=== PATIENT | female | born 1975 | race Caucasian/White ===

== ENCOUNTER 2018-03-15 09:32 | Outpatient (REF) | payer OTHER, SELFPAY ==
--- NOTE | 2018-03-15 08:40 | PAPFT_PTH ---
PATIENT: Diana Barrera LOC: [facility] U#:[id number] AGE/SX: 42/F ROOM: RE03/15/[address]: Elissa Quesada : 1975 BED: DIS: 03/15/2018 SPEC #: [id number] RECD: 03/15/18 13:17 STATUS: HAROLDO REJanie #: [id number] MAGNOLIA: 03/15/18 08:[address]: Elissa Quesada DEPT: [facility] Cytology RECD BY: Racheal Robles ENTERED: 03/15/18 13:18 SP TYPE: PAPFT OTHR DR: Chioma Bass Tissues: 1 - CX/ENDOCX FOR PAP SMEARS Procedures: PAP THIN PREP/[facility] Screening Comments: [id number] (VAGINAL HPV SENT TO [facility])
[2018-03-27 21:03] LABS: HPV High Risk type 16, PCR Negative (Negative); HPV High Risk type 18, PCR Negative (Negative); HPV other High Risk types, PCR Negative (Negative); Specimen Source VAGINAL
== END 2018-03-15 09:52 ==
LOC: LBN 09:32
PROVIDERS: PCP Nurse Practitioner Family; Visit Provider Obstetrics & Gynecology Gynecology
DX: Z12.4 Encounter for screening for malignant neoplasm of cervix (principal); Z11.51 Encounter for screening for human papillomavirus (HPV)
CPT/HCPCS: 87624; 88142

== ENCOUNTER 2018-09-17 17:10 | Emergency (ER) | payer OTHER, SELFPAY ==
[2018-09-17 17:29] VITALS: BP 145/91; PULSE 113; RESP 16; TEMP 39.4; O2SAT 98
[2018-09-17 17:30] LABS: Bilirubin Negative (Negative); Blood Negative (Negative); Clarity Clear (Clear); Glucose Negative (Negative); Ketones Negative (Negative); Leukocyte Esterase Negative (Negative); Nitrite Negative (Negative); Urobilinogen 0.2 EU/dL (Up TO 0.2)
--- NOTE | 2018-09-17 17:42 | DI.COMBO_ITS ---
SYMPTOM/DIAGNOSIS: COUGH, FEBRILE, HEADACHE PORTABLE AP CHEST: The lungs are free of infiltrate. There is no pleural effusion. The cardiovascular structures are intact. SUMMARY: No evidence of acute cardiopulmonary disease. NONCONTRAST HEAD CT: The study was carried out without contrast. There is no evidence of a mass. The ventricles are normal. There is no skull fracture. The sinuses are unremarkable. There is no evidence of a mastoid effusion. The soft tissues are unremarkable. SUMMARY: There is no evidence of an acute intracranial abnormality.
[2018-09-17 17:45] LABS: Bacteria Few HPF (Negative); C & S Indicated? No/Sq. Contamination; Crystals Negative HPF (Negative); Epithelial Cells Many HPF (Negative); Mucus Negative (Negative); RBC 0-2 (0-2); WBC 0-2 HPF (0-5)
--- NOTE | 2018-09-17 17:54 | ED.GENADUL_ITS ---
Discharge Plan Disposition Patient Disposition: HOME Condition: Improving Discharge Details Chief Complaint: Fever Clinical Impression: Headache, Fever Primary Care Provider: Chioma Bass ED Provider: Maikel Cortez Home Meds and New Rx's Prescriptions: New doxycycline hyclate 100 mg tablet 100 mg PO BID 21 Days Qty: 42 RF: 0 ondansetron 4 mg tablet,disintegrating 4 mg PO QID PRN (Reason: nausea and vomiting) Qty: 30 RF: 0 No Action calcium carbonate [Tums] 300 mg (750 mg) tablet,chewable 300 mg PO DIRECTED RF: 0 cholecalciferol (vitamin D3) 1,000 unit capsule 1,000 unit PO DAILY RF: 0 mometasone [Nasonex] 50 mcg/actuation spray,non-aerosol 1 spray DENI BID RF: 0 albuterol sulfate [Proventil HFA] 90 mcg/actuation HFA aerosol inhaler 2 puff IH Q6H PRNRF: 0 buspirone 10 mg tablet 10 mg PO BID RF: 0 albuterol sulfate 1.25 MG/3 ML solution for nebulization 1.25 mg Inhalation PRN RF: 0 Biofreeze (menthol) 118 ML gel 118 ml Topical PRN RF: 0 Lyrica 150 MG capsule 150 mg PO BID RF: 0 Probiotic (B. coagulans) 1 EACH capsule,delayed release(DR/EC) 1 ea PO HS RF: 0 ranitidine HCl 150 mg tablet 150 mg PO BID RF: 0 polyethylene glycol 3350 [Miralax] 17 gram/dose powder 17 gm PO DAILY RF: 0 celecoxib [Celebrex] 200 mg capsule 200 mg PO DAILY RF: 0 lamotrigine 25 mg tablet 25 mg PO DAILY RF: 0 metronidazole 0.75 % cream 1 applic TP BID RF: 0 fiber tablet PO DAILY RF: 0 loratadine [Claritin] 10 mg tablet 10 mg PO DAILY RF: 0 diclofenac sodium [Voltaren] 1 % gel 2 gm TP BID RF: 0 omega 4-oti-lic-fish oil [Fish Oil] 1,000 mg (120 mg-180 mg) capsule 1 cap PO DAILY RF: 0 acetaminophen 650 mg tablet extended release 1,300 mg PO .as directed PRNRF: 0 methocarbamol [Robaxin] 500 mg tablet 500 mg PO TID RF: 0 benzonatate 100 mg capsule 100 mg PO Q8H PRN PRNRF: 0 tramadol 50 mg tablet 50 mg PO TID MDD 150mg PRNRF: 0 Discharge Instructions Additional Instructions: Given you felt better, and your reassuring workup including lumbar puncture results we are starting oral doxycyline to cover for tick born illness IF you feel significantly worse, have new symptoms such as severe abdominal pain or difficulty breathing return to the emergency department follow up with your primary care provider within 1-2 weeks Medical Decision Making <Reed Perry, - Last Filed: 09/17/18 22:29> This is a pleasant 42-year-old female who presents today for headache, fever, and severe malaise. Patient was bitten by a tick 2 weeks ago and then again 1 week ago. Tics per patient description is concerning for deer tick with black legs, and a red spot on its back. Patient's fever at home was 10 4-1 05. She was sent in by PCP for further evaluation. Exam demonstrates no focal neurologic deficits but does demonstrate positive Kernig's and Brudzinski's. In addition to a notable headache. Patient is febrile, and tachycardic. Differential is concerning for meningitis, encephalitis, Lyme, anaplasmosis and ehrlichiosis. We will get a chest x-ray as well as urinalysis to rule out any other atypical forms of infection. We will start vancomycin, Rocephin, and doxycycline out of concern for these atypical illnesses and more concerningly meningitis. 8 PM Patient's laboratory work-up has returned, white count is slightly low at 3.3, platelets are normal, electrolytes are normal. Renal function stable, lactate 1.2. TSH normal. Urinalysis negative for evidence of infection. CT scan per virtual radiology shows no evidence of acute intracranial abnormality. Lumbar puncture was attempted, however secondary to the patient's obesity, and size the standard needle was insufficient for reaching the depth required for cerebrospinal fluid collection. We have consulted anesthesia for lumbar puncture with longer needles. On reassessment the patient continues to demonstrate no neurologic deficits. After notable migraine cocktail and fluid rehydration she is feeling better but still does complain of neck stiffness, mild headache, notable malaise. We are pending the cerebrospinal fluid results. I did contact Dr. Morley the hospitalist and discussed the case with him. He would like to wait for final results prior to admission evaluation. Case will be signed out to my colleague Dr. Maikel Cortez for final hospitalist consultation and disposition pending cerebrospinal fluid results. Procedure: Lumbar Puncture Indication: Concern for Meningitis A time-out was completed verifying correct patient, procedure, site, positioning, and special equipment if applicable. The patient was placed in the LEFT lateral decubitus position in a semi- position with help from the nursing staff. The area was cleansed and draped in usual sterile fashion. 1% lidocaine was used anesthetize the surrounding skin area. A 20-gauge 3.5-inch spinal needle was used. Unfortunately because of the patient's body habitus we are unable to reach the epidural space due to the insufficient length of the needles. 2 total attempts were made with no success. Estimated Blood Loss: 0ml The patient tolerated the procedure well and there were no complications. <Maikel Cortez MD - Last Filed: 09/17/18 21:44> patient's LP results came back reassuring with very few white cells. She is feeling better and Dr. Morley evaluated her and felt she could be d/c'd on oral doxy, and after examinig her and reviewing labs and discussing with the patient decision was made to try outpatient doxy for likely tick born illness. She feels much better and would like to go home rather than be admitted. She understands she needs to return if she is worsening and f/u with her pcp HPI <Reed Perry DO - Last Filed: 09/17/18 22:29> General Date/Time Provider Initiated Documentation: 09/17/18 17:42 . HPI Narrative: This is a 42-year-old female with a past medical history of fibromyalgia, asthma, chronic migraines, who presents today for evaluation of fever, headache, neck pain. The patient states that 2 weeks ago she was bit by a black legged tick with red on its back. It was embedded and engorged. She had no rash or complaints after this initial episode. She then was bit by a second tick of similar description which also was engorged 1 week ago. Since then she had been having mild malaise and achiness, however this was certainly obfuscated by her chronic symptoms of fibromyalgia. Unfortunately over the last 2 days she has had notable worsening of her symptoms, severe fatigue, notable headache, neck pain, neck stiffness, fever with a T-max of 104-105. Headache is notably worsened with bright lights and flexion of her neck. Improved by nothing. She has had a mild cough. She denies any dysuria. She does admit to nausea but no vomiting. She does have chronic headaches however she states that this is notably different than her chronic headaches. She denies any other sick contacts or any other complaints at this time. No other modifying factors. She was seen earlier by her PCP who recommended that she immediately come to the ER for further evaluation. Related Data Home Medications Medication Instructions Recorded Confirmed albuterol sulfate 1.25 mg INHALATION PRN 04/25/16 03/15/18 menthol [Biofreeze] 118 ml TOPICAL PRN 04/25/16 05/28/18 pregabalin [Lyrica] 150 mg PO BID tab-cap 07/28/16 05/28/18 Bacillus coagulans [Probiotic] 1 ea PO HS 08/29/16 05/28/18 buspirone 10 mg tablet 10 mg PO BID 03/15/18 05/28/18 celecoxib 200 mg capsule 200 mg PO DAILY 04/30/18 05/28/18 diclofenac 1 % topical gel 2 gm TP BID gm 04/30/18 05/28/18 fiber tablet tab PO DAILY tab 04/30/18 05/28/18 lamotrigine 25 mg tablet 25 mg PO DAILY 04/30/18 05/28/18 loratadine 10 mg tablet 10 mg PO DAILY 04/30/18 05/28/18 metronidazole 0.75 % topical cream 1 applic TP BID 04/30/18 05/28/18 omega 7-cjk-oed-fish oil 1,000 mg 1 cap PO DAILY 04/30/18 05/28/18 (120 mg-180 mg) capsule polyethylene glycol 3350 17 17 gm PO DAILY 04/30/18 05/28/18 gram/dose oral powder ranitidine 150 mg tablet 150 mg PO BID tab 04/30/18 05/28/18 acetaminophen ER 650 mg 1,300 mg PO .as directed PRN tab 05/28/18 05/28/18 tablet,extended release albuterol sulfate HFA 90 2 puff IH Q6H PRN 05/28/18 05/28/18 mcg/actuation aerosol inhaler benzonatate 100 mg capsule 100 mg PO Q8H PRN PRN cap 05/28/18 05/28/18 calcium carbonate 300 mg (750 mg) 300 mg PO DIRECTED tab 05/28/18 05/28/18 chewable tablet cholecalciferol (vitamin D3) 1,000 1,000 unit PO DAILY 05/28/18 05/28/18 unit capsule methocarbamol 500 mg tablet 500 mg PO TID tab 05/28/18 05/28/18 mometasone 50 mcg/actuation nasal 1 spray DENI BID gm 05/28/18 05/28/18 spray tramadol 50 mg tablet 50 mg PO TID PRN tab-cap MDD 150mg 05/28/18 05/28/18 doxycycline hyclate 100 mg PO BID 21 Days #42 tab 09/17/18 ondansetron 4 mg PO QID PRN #30 tab 09/17/18 Previous Rx's Medication Instructions Recorded doxycycline hyclate 100 mg PO BID 21 Days #42 tab 09/17/18 ondansetron 4 mg PO QID PRN #30 tab 09/17/18 Allergies Allergy/AdvReac Type Severity Reaction Status Date / Time mold Allergy Intermediate Verified 09/17/18 17:32 No Known Drug Allergies Allergy Unverified 09/17/18 17:32 General Stated Complaint: Fever JALEEL: 3 Review of Systems <Reed Perry DO - Last Filed: 09/17/18 22:29> Review of Systems All systems reviewed & are unremarkable except as noted in HPI and below PFSH <Reed Perry DO - Last Filed: 09/17/18 22:29> Medical History Fibromyalgia affecting multiple sites (Chronic) Adenocarcinoma of cervix (Chronic) Depression (Chronic) Eczema (Chronic) Migraine Cervical high risk HPV (human papillomavirus) test positive (Resolved) BMI 40.0-44.9, adult (Chronic) GERD (gastroesophageal reflux disease) (Chronic) Acne rosacea (Chronic) IBS (irritable bowel syndrome) (Chronic) Asthma (Chronic) Relies on vasectomy as primary control method (Inactive) Surgical History Hysterectomy, Laproscopic (Resolved 03/29/17) Dilation and curettage (Resolved) Family History Mother Diabetes Essential hypertension Social History Smoking/Tobacco Use Status: Never Alcohol Intake: current Alcohol Intake frequency: a few times a month Details: rarely Drug use: Never Substance use type: does not use Household members: spouse, children and other Details: H-Mac (Dx with ASD 41yo) Daniel 6yo Autism spectrum Number of Children: 1 current occupation: disabled secondary to fibromyalgia Seatbelt use: always Do you feel safe at home: Yes Do you feel safe in your relationship?: Yes Female Reproductive History Menstrual control method: other (Hysterectomy) History History 2 Para Hx # Term Pregnancies 1 Multiple births Hx # Pregnancies Ectopic pregnancies AB induced Hx Number of Living Children AB spontaneous Exam <Reed Perry DO - Last Filed: 09/17/18 22:29> Narrative Exam Narrative: 1.Const: Well-nourished, Well-developed, appearing stated age 2.Eyes: PERRL, no conjunctival injection, and symmetrical lids. 3.ENT: Atraumatic external nose and ears. Moist MM. Neck: Symmetric, trachea midline, No thyromegaly. Positive Kernig's and Brudzinski's on exam. Minimal tenderness on palpation of the posterior neck and occiput peer 4.CVS: +S1/S2, No murmurs or gallops. Peripheral pulses 2+ and equal in all extremities. Brisk capillary refill in all extremities. 5.RESP: Unlabored respiratory effort. Clear to auscultation bilaterally. No wheezes rales or rhonchi 6.GI: Soft, Nontender/Nondistended, No hepatosplenomegaly. No guarding or rebound. 7.MSK: Normocephalic/Atraumatic, Extremities w/o deformity or ttp No cyanosis or clubbing, Normal movement of all extremities 8.Skin: Warm, Dry. No rashes or lesions. 9.Neuro: loss control engineer II-XII grossly intact. Sensation grossly intact, no focal neurologic deficits. All 6 cardinal planes of vision are fully intact. No evidence of rotatory or vertical nystagmus. The patient demonstrated a normal sqnjyp-fsxk-vocynh, good dexterity. There was no evidence of dysdiadochokinesia. Patient was able to ambulate without difficulty. There was no wide-based gait. Romberg, and puzi-nq-ckhw are both normal on testing. Sensation was intact bilaterally as well as muscle strength bilaterally for all extremities. Patient was able to verbalize butter cup with no slurring, or miss pronunciation. 10.Psych: (AAO) x3. Appropriate mood and affect Course <Reed Perry, - Last Filed: 09/17/18 22:29> Vital Signs Temperature 39.4 C H 09/17/18 17:29 Pulse 113 H 09/17/18 17:29 Respiratory Rate 16 09/17/18 17:29 Blood Pressure 145/91 H 09/17/18 17:29 Pulse Oximetry 98 09/17/18 17:29 Temperature 39.4 C H 09/17/18 17:29 Temperature Source Oral 09/17/18 17:29 Pulse 113 H 09/17/18 17:29 Respiratory Rate 16 09/17/18 17:29 Respiratory Effort Non-Labored 09/17/18 17:31 Blood Pressure 145/91 H 09/17/18 17:29 Blood Pressure Position Supine 09/17/18 17:29 Pulse Oximetry 98 09/17/18 17:29 Oxygen Delivery Method Room Air 09/17/18 17:29 Oxygen Flow Rate 0 09/17/18 17:29 Pain Level 7 09/17/18 17:29 Lab/Test Results Lab/Test Results: 09/17/18 17:43 Blood Blood Culture - Pending 09/17/18 17:43 Blood Blood Culture - Pending Laboratory Tests Range/Units 09/17/18 17:18 Urine Color (Yellow) Yellow Urine Clarity (Clear) Clear Urine pH (5-8) 8.0 Ur Specific [place] (1.005-1.025) 1.020 Urine Protein (Negative) mg/dL 30 H Urine Ketones (Negative) mg/dL Negative Urine Blood (Negative) Negative Urine Nitrite (Negative) Negative Urine Bilirubin (Negative) Negative Urine Urobilinogen (Up TO 0.2) EU/dL 0.2 Ur Leukocyte Esterase (Negative) Negative Urine RBC (0-2) 0-2 Urine WBC (0-5) HPF 0-2 Ur Epithelial Cells (Negative) HPF Many Urine Crystals (Negative) HPF Negative Urine Bacteria (Negative) HPF Few Urine Mucus (Negative) Negative Ur Culture Indicated? No/sq. contamination Urine Glucose (Negative) mg/dL Negative Sign Out <Reed Perry DO - Last Filed: 09/17/18 22:29> Sign Out Data: Sign Out Comment: Pending CSF results and then subsequent admission. Currently stable Last updated by Reed Perry DO at 09/17/18 21:00
[2018-09-17 18:01] LABS: Lactate-non-spesis 1.2 mmol/l (0.6-1.4)
[2018-09-17 18:04] LABS: Abs Immature Grans 0.02 k/cumm (0.0-0.09); Absolute Basophil Count 0.02 k/cumm (0.0-0.2); Absolute Lymphocyte Count 0.46 k/cumm (1.2-3.4); Absolute Monocyte Count 0.31 k/cumm (0.11-0.7); Basophils % 0.6; HGB 13.3 g/dL (12.0-15.5); Immature Grans % 0.6; Lymphocytes % 13.9; Mean Corp. HGB Concentration 31.7 g/dL (32.0-36.0); Mean Corpuscular Hemoglobin 26.7 pg (27.0-33.0); Mean Corpuscular Volume 84.3 fL (80-95); Mean Platelet Volume 9.8 fL (8.0-11.0); Monocytes % 9.4; Neutrophils % 75.5; Platelet Count 197 x1000/uL (130-400); RBC 4.98 m/cumm (4.00-5.20); RBC Distribution Width 13.7 % (11.7-14.6); White Blood Cell Count 3.31 k/cumm (4.4-10.8)
[2018-09-17] MEDS: Ketorolac 30 MG/ML VIAL IVP (18:08)
[2018-09-17] MEDS: Normal Saline 1,000 ML 1000 ML IV ×2 (18:09→20:40)
[2018-09-17] MEDS: Ketorolac 30 MG/ML VIAL (18:09)
[2018-09-17] MEDS: Ondansetron 4 MG/2 ML VIAL (18:10)
--- NOTE | 2018-09-17 18:24 | DI.VRAD_ITS ---
EXAM: CT Head Without Contrast EXAM DATE/TIME: 09/17/2018 5:47 PM CLINICAL HISTORY: 42 years old, female; Pain; Headache TECHNIQUE: Imaging protocol: Axial computed tomography images of the head without contrast. Coronal and sagittal reformatted images were created and reviewed. COMPARISON: No relevant prior studies available. FINDINGS: Brain: Normal. No hemorrhage. Unremarkable white matter. No mass effect. Ventricles: Normal. No ventriculomegaly. Bones/joints: Unremarkable. No acute fracture. Sinuses: Visualized sinuses are unremarkable. No fluid levels. Mastoid air cells: Visualized mastoid air cells are well aerated. No mastoid effusion. Soft tissues: Unremarkable. IMPRESSION: No acute intracranial abnormality. Dictated and Authenticated by: Toy Garber MD. Ordering:CLIF Mcbride MD
[2018-09-17 18:28] LABS: ALT 38 U/L (12-78); AST 24 U/L (15-37); Albumin 3.4 g/dL (3.4-5.0); Alkaline Phosphatase 107 U/L (46-116); Anion Gap 6.8 mmol/L (3-11); BUN 6 mg/dL (7-18); Bilirubin, Total 0.4 mg/dL (0.2-1.0); CO2 28.2 mmol/L (21.0-32.0); CREATININE 0.96 mg/dL (0.55-1.02); Calcium 8.7 mg/dL (8.5-10.1); Chloride 103 mmol/L (98-107); Glucose 119 mg/dL (70-100); Potassium 4.1 mmol/L (3.5-5.1); Sodium 138 mmol/L (136-145); Total Protein 7.1 g/dL (6.4-8.2)
[2018-09-17 18:38] LABS: TSH (W/Ref FT4) 0.47 uIU/mL (0.358-3.74)
[2018-09-17] MEDS: cefTRIAXone 2 GM/50 ML BAG IVPB (18:38)
[2018-09-17] MEDS: diphenhydrAMINE 50 MG/ML VIAL 25 MG IVP (18:51)
[2018-09-17] MEDS: DOXYCYCLINE 100 MG in Normal Saline 100 ML IVPB (19:21)
[2018-09-17] MEDS: Prochlorperazine 10 MG/2 ML VIAL IVP (19:22)
[2018-09-17] MEDS: VANCOMYCIN 2,000 MG in Normal Saline 500 ML 333.3333 MG IVPB (19:22)
[2018-09-17 20:40] VITALS: O2SAT 92
[2018-09-17 20:41] VITALS: BP 124/79; PULSE 101; O2SAT 94
[2018-09-17 20:46] VITALS: BP 129/77; PULSE 98; O2SAT 94
[2018-09-17 21:02] LABS: Clarity Clear; Tube # 4
[2018-09-17 21:03] LABS: RBC 0 /mm3 (0-5); WBC 1 /mm3 (0-5); Xanthochromia Absent
[2018-09-17 21:05] LABS: Glucose (CSF) 75 mg/dL (40-70); Total Protein (CSF) 24 mg/dL (15-45)
--- NOTE | 2018-09-17 21:38 | W.MEDCONSULT ---
Date of service: 09/17/18 Time of Service: 21:38 Assessment and Plan (1) Fever: Current visit: Yes Status: Acute Infection, non-specific at this point, but meningitis has been ruled out. Secondary Lyme certainly possible though no specific findings. Clinically patient appears entirely non-toxic and I see no reason she couldn't be managed as outpatient. I would advise empiric Doxycycline 100 bid x 2-3 weeks, pending Lyme serology, and follow up with PCP. History of Present Illness Chief Complaint: fever Narrative: 42 female here with few days of fever, malaise, BENOIT. Patient notes tick bite 2 weeks ago, no subssequent rash. Initial evaluation in ER of note for temp 39.4 and waht was described as neck stiffness (patient tells me that this is hard to separate from what is her chrronic pain symdrome). At any rate pateint was given doses of Vanco, Rocephin and Doxy out of concern for meninigiitis. Initial LP attempt unsuccessful but CSF was later obtained by anaesthesia. CSF. CSF is benign, with 1 WBC, 0 RBC. At this time patient reports that she is feeling quite well and asking whether she could go home. [facility] Medical History Fibromyalgia affecting multiple sites (Chronic) Adenocarcinoma of cervix (Chronic) Depression (Chronic) Eczema (Chronic) Migraine Cervical high risk HPV (human papillomavirus) test positive (Resolved) BMI 40.0-44.9, adult (Chronic) GERD (gastroesophageal reflux disease) (Chronic) Acne rosacea (Chronic) IBS (irritable bowel syndrome) (Chronic) Asthma (Chronic) Relies on vasectomy as primary control method (Inactive) Surgical History Hysterectomy, Laproscopic (Resolved 03/29/17) Dilation and curettage (Resolved) Family History Mother Diabetes Essential hypertension Social History Smoking/Tobacco Use Status: Never Alcohol Intake: current Alcohol Intake frequency: a few times a month Details: rarely Drug use: Never Substance use type: does not use Household members: spouse, children and other Details: H-Mac (Dx with ASD 41yo) Daniel 6yo Autism spectrum Number of Children: 1 current occupation: disabled secondary to fibromyalgia Seatbelt use: always Do you feel safe at home: Yes Do you feel safe in your relationship?: Yes Female Reproductive History Menstrual control method: other (Hysterectomy) History History 2 Para Hx # Term Pregnancies 1 Multiple births Hx # Pregnancies Ectopic pregnancies AB induced Hx Number of Living Children AB spontaneous Exam Narrative Exam Narrative: Tmax 39.4, 145/91, 113, 16, 98% sat. HEENT unremarkable; neck supple; lungs clear; heart RRR w/o m/r/g; abdomen soft and NT w/o HSM; pelvic/rectal deferred; extr w/o edema; neuro ox3 CN intact, motor 5/5 Results Last Vital Signs Temp 39.4 C H 09/17/18 17:29 Pulse 113 H 09/17/18 17:29 Resp 16 09/17/18 17:29 BP 145/91 H 09/17/18 17:29 Pulse Ox 98 09/17/18 17:29 Labs : 09/17/18 17:40 09/17/18 17:40 Laboratory Results - last 24 hr 09/17/18 09/17/18 09/17/18 17:18 17:40 17:40 WBC RBC Hgb Hct MCV MCH MCHC RDW Plt Count MPV Immature Gran % Neutrophils % Lymphocytes % Monocytes % Eosinophils % Basophils % Absolute Neutrophils Absolute Lymphocytes Absolute Monocytes Absolute Eosinophils Absolute Basophils Xanthochromia Sodium 138 Potassium 4.1 Chloride 103 Carbon Dioxide 28.2 Anion Gap 6.8 BUN 6 L Creatinine 0.96 Estimated GFR/1.73 m2 >= 60.00 Glucose 119 H Lactate Calcium 8.7 Total Bilirubin 0.4 AST 24 ALT 38 Alkaline Phosphatase 107 Total Protein 7.1 Albumin 3.4 TSH 0.47 Urine Color Yellow Urine Clarity Clear Urine pH 8.0 Ur Specific [place] 1.020 Urine Protein 30 H Urine Ketones Negative Urine Blood Negative Urine Nitrite Negative Urine Bilirubin Negative Urine Urobilinogen 0.2 Ur Leukocyte Esterase Negative Urine RBC 0-2 Urine WBC 0-2 Ur Epithelial Cells Many Urine Crystals Negative Urine Bacteria Few Urine Mucus Negative Ur Culture Indicated? No/sq. contamination Urine Glucose Negative CSF Tube Number CSF Color CSF Clarity CSF WBC CSF RBC CSF Diff Comment CSF Glucose CSF Total Protein 09/17/18 09/17/18 09/17/18 17:40 17:40 20:20 WBC 3.31 L RBC 4.98 Hgb 13.3 Hct 42.0 MCV 84.3 MCH 26.7 L MCHC 31.7 L RDW 13.7 Plt Count 197 MPV 9.8 Immature Gran % 0.6 Neutrophils % 75.5 Lymphocytes % 13.9 Monocytes % 9.4 Eosinophils % 0.0 Basophils % 0.6 Absolute Neutrophils 2.50 Absolute Lymphocytes 0.46 L Absolute Monocytes 0.31 Absolute Eosinophils 0.00 Absolute Basophils 0.02 Xanthochromia Sodium Potassium Chloride Carbon Dioxide Anion Gap BUN Creatinine Estimated GFR/1.73 m2 Glucose Lactate 1.2 Calcium Total Bilirubin AST ALT Alkaline Phosphatase Total Protein Albumin TSH Urine Color Urine Clarity Urine pH Ur Specific [place] Urine Protein Urine Ketones Urine Blood Urine Nitrite Urine Bilirubin Urine Urobilinogen Ur Leukocyte Esterase Urine RBC Urine WBC Ur Epithelial Cells Urine Crystals Urine Bacteria Urine Mucus Ur Culture Indicated? Urine Glucose CSF Tube Number CSF Color CSF Clarity CSF WBC CSF RBC CSF Diff Comment CSF Glucose 75 H CSF Total Protein 24 09/17/18 20:20 WBC RBC Hgb Hct MCV MCH MCHC RDW Plt Count MPV Immature Gran % Neutrophils % Lymphocytes % Monocytes % Eosinophils % Basophils % Absolute Neutrophils Absolute Lymphocytes Absolute Monocytes Absolute Eosinophils Absolute Basophils Xanthochromia Absent Sodium Potassium Chloride Carbon Dioxide Anion Gap BUN Creatinine Estimated GFR/1.73 m2 Glucose Lactate Calcium Total Bilirubin AST ALT Alkaline Phosphatase Total Protein Albumin TSH Urine Color Urine Clarity Urine pH Ur Specific [place] Urine Protein Urine Ketones Urine Blood Urine Nitrite Urine Bilirubin Urine Urobilinogen Ur Leukocyte Esterase Urine RBC Urine WBC Ur Epithelial Cells Urine Crystals Urine Bacteria Urine Mucus Ur Culture Indicated? Urine Glucose CSF Tube Number 4 CSF Color Colorless CSF Clarity Clear CSF WBC 1 CSF RBC 0 CSF Diff Comment CSF Glucose CSF Total Protein
[2018-09-19 11:18] LABS: Lyme Ab w Rflx to Lyme Confirm Negative
[2018-09-20 23:21] LABS: B. miyamotoi PCR Negative (Negative); Babesia divergens/MO-1 Negative (Negative); Babesia duncani Negative (Negative); Babesia microti Negative (Negative); Ehrlichia chaffeensis Negative (Negative); Ehrlichia ewingii/canis Negative (Negative); Ehrlichia muris eauclairensis Negative (Negative)
[2018-09-21 00:09] LABS: EBV DNA Detect/Quant, P Undetected IU/mL (Undetected)
[2018-09-21 00:12] LABS: Cytomegalovirus PCR Negative (Negative); Specimen Source CSF
[2018-09-21 00:15] LABS: Specimen Source CSF; West Nile Virus PCR Negative (Negative)
[2018-09-21 06:38] LABS: Anaplasma phagocytophilum Positive (Negative)
--- NOTE | 2018-09-21 06:45 | W.ED.FU ---
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 Patient had been seen here on 09/17 and was discharged with doxycycline x21 days. She was referred to primary care for follow-up. We will have patient contacted later today to be made aware of her diagnosis and to be sure she is taking her doxycycline and following up with primary care.
--- NOTE | 2018-09-21 09:23 | W.ED.FU ---
Followed up with patient this morning and she was given her positive result of anaplasmosis over the phone. Pt states she has had dogs with similar diagnosis and was not surprised by this diagnosis. Patient states she is overall doing better, no longer having fevers and diarrhea has resolved. She states she is taking the doxycycline as prescribed. She states she is planning to call her primary care doctor on Sunday morning to schedule a follow-up appointment for reevaluation. She is instructed to return here if she has any worsening symptoms of persistent fevers or any other concerns.
[2018-09-23 15:36] LABS: Adenovirus PCR Negative (Negative); Specimen Source CSF
== END 2018-09-17 21:58 | disposition home or self-care (01) ==
PROVIDERS: Student in an Organized Health Care Education/Training Program; Emergency Provider Emergency Medicine; PCP Nurse Practitioner Family
DX: R51 Headache (principal); R50.9 Fever, unspecified; A77.49 Other ehrlichiosis; W57.XXXA Bitten or stung by nonvenomous insect and other nonvenomous arthropods, initial encounter
CPT/HCPCS: 36415; 62270; 80053; 82945; 87040; 87116; 87206; 87798; 87799; 89050; 89051; 96361; 96365; 96368; 96375; 99252; 99283; 99285; 70450; 71045; 81003; 81015; 83605; 84157; 84443; 85025; 86618; 87070; 87205; 87496; J0780; J1200; J1885; J2405

== ENCOUNTER 2018-11-26 12:55 | Outpatient (REF) | payer OTHER, SELFPAY ==
[2018-11-29 12:34] LABS: 6-monoacetylmorphine Not Detected ng/mL (Cutoff: 25); Amphetamines Negative ng/mL (Cutoff: 500); Barbiturates Negative ng/mL (Cutoff: 200); Benzodiazepines Negative ng/mL (Cutoff: 100); Buprenorphine Not Detected ng/mL (Cutoff: 5); Cocaine Negative ng/mL (Cutoff: 150); Codeine Not Detected ng/mL (Cutoff: 25); Comment Normal; Creatinine, U 83.9 mg/dL; Dihydrocodeine Not Detected ng/mL (Cutoff: 25); EDDP Not Detected ng/mL (Cutoff: 25); Fentanyl Not Detected ng/mL (Cutoff: 2); Hydrocodone Not Detected ng/mL (Cutoff: 25); Hydromorphone Not Detected ng/mL (Cutoff: 25); Hydromorphone-3-beta-glucuroni Not Detected ng/mL (Cutoff: 100); Meperidine Not Detected ng/mL (Cutoff: 25); Methadone Not Detected ng/mL (Cutoff: 25); Morphine Not Detected ng/mL (Cutoff: 25); N-desmethyltapentadol Not Detected ng/mL (Cutoff: 50); Naloxone Not Detected ng/mL (Cutoff: 25); Norbuprenorphine Not Detected ng/mL (Cutoff: 5); Norfentanyl Not Detected ng/mL (Cutoff: 2); Norhydrocodone Not Detected ng/mL (Cutoff: 25); Normeperidine Not Detected ng/mL (Cutoff: 25); Noroxycodone Not Detected ng/mL (Cutoff: 25); Noroxymorphone Not Detected ng/mL (Cutoff: 25); O-desmethyltramadol Present ng/mL (Cutoff: 25); Phencyclidine Negative ng/mL (Cutoff: 25); Propoxyphene Not Detected ng/mL (Cutoff: 25); Specific Gravity 1.013; Tapentadol Not Detected ng/mL (Cutoff: 25); Tetrahydrocannabinol Negative ng/mL (Cutoff: 50); Tramadol Present ng/mL (Cutoff: 25); pH 6.1
== END 2018-11-26 13:15 ==
LOC: LBN 12:55
PROVIDERS: PCP Nurse Practitioner Family; Visit Provider Nurse Practitioner Family
DX: M47.816 Spondylosis without myelopathy or radiculopathy, lumbar region (principal); G89.29 Other chronic pain; Z79.899 Other long term (current) drug therapy
CPT/HCPCS: 80307; 80364

== ENCOUNTER 2018-12-31 13:52 | Outpatient (CLI) | payer OTHER, SELFPAY ==
[2018-12-31 14:10] VITALS: BP 146/82; PULSE 100; RESP 22; TEMP 37.9; O2SAT 98
[2018-12-31 15:16] VITALS: BP 149/90; PULSE 106; RESP 18; O2SAT 99
[2018-12-31] MEDS: Omnipaque 240 MG/ML 50 ML BTL IJ (15:18)
[2018-12-31] MEDS: Bupivacaine 0.5% Pres-Free 10 ML VIAL IJ (15:18)
--- NOTE | 2018-12-31 15:18 | PDOC.PAIN_ITS ---
Pain Clinic Procedure Note Procedure Note Procedure Note: Lumbar/Sacral Medial Branch Blocks CATHY VARMA has been [facility] for lumbar/sacral medial branch blocks. COMMENTS: Previously seen by Ms. Negrete in our clinic. DX: Lumbosacral spondylosis without myelopathy Patient was interviewed and the medical record reviewed. There were no medical, pharmacologic, radiographic or other structural contraindications to attempting fluoroscopically guided local anesthetic lumbar/sacral medial branch blocks. Risks and expected side effects as well as potential benefit of the procedure were reviewed and voiced concerns addressed. The printed consent form was jhonny d and witnessed. Standard time-out procedure was performed. Patient was placed in the prone position on the fluoroscopy table and automated blood pressure cuff and pulse oximeter applied. The skin entry points for approaching the anatomic target points of the segmental medial branches of bilateral L3-L5 were identified with anfluoroscopy and marked. Following thorough Chlorhexadine preparation of the skin and draping and 1% lidocaine infiltration of the skin entry points and subcutaneous tissues, a 22 gauge spinal needle was placed under fluoroscopic guidance down on to the target point for each respective segmental medial branch.Position was confirmed in A/P, oblique and lateral views with 0.25ml of omnipaque 240. Coult be this method .5ml 0.5% Bupivacaine was injected or 1% Lidocaine. Vital signs were stable throughout the procedure and were as recorded in the docflowsheet by the nursing staff. Follow up plans and appointments were discussed and was instructed to keep careful note of how the usual pain was modified by these injections. Specifically was asked to keep a pain diary for the next 24 hours using a numeric pain scale of 0-10 and report these results at the follow-up visit. Post procedure instruction was given as documented in the nursing documentation and having met discharge criteria. Patient was discharged from the [facility]. Based on the medial branches blocked today, if the patient has adequate relief and we are able to proceed to radiofrequency ablation, the treatment should result in the denervation of the bilateral L4-L5 and L5-S1 FACET JOINTS. We would expect to denervate a total of 4 facets during the radiofrequency ablation. COMMENTS: She will call back with the 1-4 hour post-procedure pain levels for her low back CC: Chioma Bass
--- NOTE | 2018-12-31 15:19 | DI.RAD_ITS ---
EXAM: XR PAIN CLINIC LUMBAR SP 2V CLINICAL HISTORY: Lumbar Epidural Steroid Injection TECHNIQUE: C-arm fluoroscopy was utilized by Dr. James during reported lumbar epidural steroid inject ion. Please see Dr. James procedure note. Hard copies show injections bilaterally of what appear to be the L 3 4 L4-5 and L5-S1 levels laterally. COMPARISON: No exams were available for comparison FINDINGS: IMPRESSION:
== END 2018-12-31 14:12 ==
PROVIDERS: PCP Nurse Practitioner Family; Visit Provider Preventive Medicine Occupational Medicine
DX: M47.817 Spondylosis without myelopathy or radiculopathy, lumbosacral region (principal)
CPT/HCPCS: 64493 ×2; 64494 ×2; 72100; Q9967

== ENCOUNTER 2020-03-24 10:00 | Outpatient (REF) | payer BC, SELFPAY ==
[2020-03-24 13:39] LABS: Anion Gap 7.2 mmol/L (3-11); BUN 12 mg/dL (7-18); CO2 28.8 mmol/L (21.0-32.0); CREATININE 0.96 mg/dL (0.55-1.02); Calculated LDL 134 mg/dL (<100); Chloride 106 mmol/L (98-107); Cholesterol 197 mg/dL (<200); Glucose 91 mg/dL (74-106); HDL Cholesterol 45 mg/dL (40-60); Potassium 4.2 mmol/L (3.5-5.1); Sodium 142 mmol/L (136-145); Triglyceride 93 mg/dL (<150)
== END 2020-03-24 10:20 ==
LOC: NCHCN 10:00
PROVIDERS: PCP Nurse Practitioner Family; Visit Provider Nurse Practitioner Family
DX: Z13.220 Encounter for screening for lipoid disorders (principal); Z13.1 Encounter for screening for diabetes mellitus
CPT/HCPCS: 80048; 80061

== ENCOUNTER 2021-03-02 12:58 | Outpatient (CLI) | payer BC, SELFPAY ==
--- NOTE | 2021-03-02 13:13 | DI.RAD_ITS ---
Exam(s) XR KNEE LT 3V AP,LAT,YAJAIRA EXAM: XR KNEE LT 3V AP,LAT,YAJAIRA CLINICAL HISTORY: LT KNEE PAIN, M25.562. TECHNIQUE: 2D digital imaging was performed. COMPARISON: No exams were available for comparison FINDINGS: Four views left knee reveal no evidence of acute fracture. There is a small joint effusion. Benign bone island noted in the tibial metaphysis. Also benign-appearing eccentric lung tuning orientated s clerotic bone lesion noted in the proximal diaphysis of the. Probably a fibrous cortical defect. There is no knee joint space narrowing. No osteochondral defects. IMPRESSION: No fracture. Small joint effusion noted. Other findings as above. DATA REPOSITORY: RADIATION DOSE DELIVERED:
== END 2021-03-02 13:18 ==
PROVIDERS: PCP Nurse Practitioner Family; Visit Provider Nurse Practitioner
DX: M25.562 Pain in left knee (principal); M25.462 Effusion, left knee
CPT/HCPCS: 73562

== ENCOUNTER 2021-05-05 19:41 | Outpatient (REF) | payer BC, SELFPAY ==
[2021-05-07 13:01] LABS: COVID-19 RT-PCR UVMMC Result Negative (Negative)
== END 2021-05-05 19:42 | disposition home or self-care (01) ==
LOC: LBN 19:41
PROVIDERS: PCP Nurse Practitioner Family; Visit Provider Nurse Practitioner Family
DX: Z20.822 Contact with and (suspected) exposure to COVID-19 (principal); R53.83 Other fatigue
CPT/HCPCS: U0003

== ENCOUNTER 2021-07-07 11:12 | Outpatient (REF) | payer BC, SELFPAY ==
--- NOTE | 2021-07-07 10:00 | PAPFT_PTH ---
PATIENT: Diana Barrera LOC: [facility] U#:[id number] AGE/SX: 45/F ROOM: RE07/07/[address]: Elissa Quesada : 1975 BED: DIS: 07/07/2021 SPEC #: [id number] RECD: 07/07/21 12:39 STATUS: TAMIBoone REQ #: [id number] MAGNOLIA: 07/07/21 10:[address]: Elissa Quesada DEPT: [facility] Cytology RECD BY: Racheal Robles ENTERED: 07/07/21 12:40 SP TYPE: PAPFT OTHR DR: Chioma Bass Tissues: 1 - CX/ENDOCX FOR PAP SMEARS Procedures: PAP THIN PREP/UVM Screening HPV DNA PROBE Comments: [id number]
== END 2021-07-07 11:13 | disposition home or self-care (01) ==
LOC: LBN 11:12
PROVIDERS: PCP Nurse Practitioner Family; Visit Provider Obstetrics & Gynecology Gynecology
DX: Z12.72 Encounter for screening for malignant neoplasm of vagina (principal); Z11.51 Encounter for screening for human papillomavirus (HPV); Z90.710 Acquired absence of both cervix and uterus; Z85.41 Personal history of malignant neoplasm of cervix uteri
CPT/HCPCS: 88142; 87624

== ENCOUNTER 2021-07-13 10:13 | Outpatient (REF) | payer BC, SELFPAY ==
[2021-07-13 14:30] LABS: Iron 54 ug/dL (50-170); Total Iron Binding Capacity 273 ug/dL (250-450); Transferrin Sat 20 % (15-50)
[2021-07-13 15:06] LABS: Ferritin 50 ng/mL (8-252)
[2021-07-14 05:59] LABS: Vitamin D 25 Total 36.4 ng/mL (30-100)
== END 2021-07-13 10:14 | disposition home or self-care (01) ==
LOC: NCHCN 10:13
PROVIDERS: PCP Nurse Practitioner Family; Visit Provider Nurse Practitioner Family
DX: Z00.00 Encounter for general adult medical examination without abnormal findings (principal); R53.83 Other fatigue; J45.20 Mild intermittent asthma, uncomplicated; M79.7 Fibromyalgia; F41.1 Generalized anxiety disorder; E66.01 Morbid (severe) obesity due to excess calories; M25.562 Pain in left knee
CPT/HCPCS: 82306; 82728; 83540; 83550

== ENCOUNTER → 2021-07-29 01:09 | Outpatient (CLI) | payer BC, SELFPAY ==
--- NOTE | 2021-07-29 07:00 | DI.MRI_ITS ---
Exam(s) MR LOWER JOINT LT WO EXAM: MR LOWER JOINT LT WO CLINICAL HISTORY: L KNEE PAIN,internal derangement m23.92 TECHNIQUE: Multiplanar multisequence MRI of the knee was performed. COMPARISON: CR XR KNEE LT 3V AP,LAT,YAJAIRA from 03/02/2021 FINDINGS: EFFUSION: There is a minimal amount of increased joint fluid. No prominent joint effusion. There is no Fuller cyst in the popliteal fossa. There is subcutaneous edema anteriorly over the lower patella and over the lower half of the patellar ligament but no tear of this structure. MARROW:There is no evidence of fracture, bone contusion, nor osteochondral defects.. Mild increase i ntraosseous signal is seen in the lateral tibial plateau region. PATELLOFEMORAL COMPARTMENT: The quadriceps tendon is intact. The patellar ligament is intact. No ab normal signal in Hoffa fat pad nor in the quadriceps fat pad. There is an oblique full-thickness fissure in the retropatellar cartilage mid aspect with some surrou nding edema in the cartilage at this level. There is no generalized thinning of the retropatellar ca rtilage and no abnormal intra osseous signal evident in the patella itself. No signal abnormality ev ident in the cartilage over the articular surface of the adjacent femoral condyle.There is no intraos seous signal to suggest recent patellar dislocation. There are no patellar retinacular tears. CRUCIATE LIGAMENTS: The anterior cruciate ligament is intact.The posterior cruciate ligament is intac t. MEDIAL COMPARTMENT/MEDIAL MENISCUS: There are no tears of the medial meniscus evident.No meniscocapsu lar separation. There are no chondral defects, osteochondral defects, subarticular marrow edema, nor osteophytes evid ent. MEDIAL COLLATERAL LIGAMENT: Intact LATERAL COMPARTMENT/LATERAL MENISCUS: There is no evidence of lateral meniscal tear.There are no karlee dral defects, osteochondral defects, subarticular marrow edema, nor osteophytes evident. ILIOTIBIAL BAND: Intact LATERAL COLLATERAL LIGAMENT COMPLEX: The fibular collateral ligament is intact. The biceps femoris t endon is intact.Popliteus muscle and tendon are intact. IMPRESSION: 1. The main finding here is in the patellofemoral compartment. There is a focal deep fissure in the retropatellar cartilage slightly lateral of center at the mid aspect of the retropatellar cartilage. There is no distinct osteochondral defect and indeed there is no abnormal intraosseous signal in the patella itself. Also no abnormal signal in the opposing hyaline cartilage over the anterior aspect of the intercondylar notch of the femur. There is no intraosseous signal to suggest recent patellar dislocation. There is, however, some cutaneous edema anterior to the patella and patellar ligament. 2. There are no meniscal tears and no cruciate ligament tears. Also no collateral ligament tears. 3. Small amount of increased joint fluid. No prominent joint effusion. There is no Fuller cyst in th e popliteal fossa. DATA REPOSITORY:
== END ==
PROVIDERS: PCP Nurse Practitioner Family; Visit Provider Student in an Organized Health Care Education/Training Program
DX: M23.92 Unspecified internal derangement of left knee (principal); M25.462 Effusion, left knee
CPT/HCPCS: 73721

== ENCOUNTER → 2021-08-10 03:43 | Outpatient (CLI) | payer BC, SELFPAY | PROVIDERS: PCP Nurse Practitioner Family; Visit Provider Obstetrics & Gynecology Gynecology ==

== ENCOUNTER 2021-12-30 18:48 | Outpatient (REF) | payer BC, SELFPAY ==
[2022-01-01 10:41] LABS: COVID-19 RT-PCR UVMMC Result Negative (Negative)
== END 2021-12-30 18:49 | disposition home or self-care (01) ==
LOC: LBN 18:48
PROVIDERS: PCP Nurse Practitioner Family; Visit Provider Physician Assistant Medical
DX: Z20.822 Contact with and (suspected) exposure to COVID-19 (principal); J06.9 Acute upper respiratory infection, unspecified
CPT/HCPCS: U0003

== ENCOUNTER 2022-05-09 18:08 | Outpatient (REF) | payer BC, SELFPAY ==
[2022-05-09 15:40] LABS: HCT 41.5 % (36.0-46.0); HGB 13.1 g/dL (11.2-15.7); MCH 26.7 pg (27.0-33.0); MCHC 31.6 % (32.0-36.0); MCV 85 fL (80-95); MPV 10.3 fL (8.0-11.0); Platelet Count 429 10^3/uL (130-400); RBC 4.91 10^6/uL (3.93-5.22); RDW 13.2 % (11.7-14.6); RDW-SD 40.9 fL; WBC 11.65 10^3/uL (4.4-10.8)
[2022-05-09 15:54] LABS: BUN 9 mg/dL (7-18); CREATININE 0.9 mg/dL (0.55-1.02); Calcium 9.2 mg/dL (8.5-10.1); Chloride 105 mmol/L (98-107); Estimated GFR 80.84 (mL/min/1.73m2); Glucose 115 mg/dL (74-106); Potassium 4.1 mmol/L (3.5-5.1); Sodium 139 mmol/L (136-145)
== END 2022-05-09 18:09 | disposition home or self-care (01) ==
LOC: NCHCN 18:08
PROVIDERS: PCP Nurse Practitioner Family; Visit Provider Nurse Practitioner Family
DX: K11.7 Disturbances of salivary secretion (principal); N90.89 Other specified noninflammatory disorders of vulva and perineum; Z00.00 Encounter for general adult medical examination without abnormal findings
CPT/HCPCS: 80048; 85027

== ENCOUNTER 2022-08-30 18:54 | Outpatient (REF) | payer BC, SELFPAY ==
[2022-08-30 19:29] LABS: TSH (W/Ref FT4) 1.48 uIU/mL (0.36-3.74)
[2022-08-31 18:30] LABS: Rheumatoid Factor <8.6 IU/mL (<12.0)
[2022-09-01 14:59] LABS: ANA Interpretation Negative (Negative)
== END 2022-08-30 18:55 | disposition home or self-care (01) ==
LOC: NCHCN 18:54
PROVIDERS: PCP Nurse Practitioner Family; Visit Provider Nurse Practitioner Family
DX: R53.83 Other fatigue (principal); M25.59 Pain in other specified joint; Z82.61 Family history of arthritis
CPT/HCPCS: 85652; 83036; 84443; 86038; 86431

== ENCOUNTER 2022-09-13 15:05 | Outpatient (REF) | payer BC, SELFPAY ==
[2022-09-13 16:37] LABS: ESR 25 mm/hr (0-20)
[2022-09-13 16:56] LABS: Hemoglobin A1C 6.5 % (<5.7)
[2022-09-14 18:42] LABS: Rheumatoid Factor <8.6 IU/mL (<12.0)
[2022-09-15 14:18] LABS: ANA Interpretation Negative (Negative)
== END 2022-09-13 15:06 | disposition home or self-care (01) ==
LOC: NCHCN 15:05
PROVIDERS: PCP Nurse Practitioner Family; Visit Provider Nurse Practitioner Family
DX: R53.83 Other fatigue (principal); E66.01 Morbid (severe) obesity due to excess calories; Z82.61 Family history of arthritis; M25.50 Pain in unspecified joint; Z68.41 Body mass index [BMI] 40.0-44.9, adult
CPT/HCPCS: 85652; 83036; 86038; 86431

== ENCOUNTER 2023-05-25 20:15 | Outpatient (REF) | payer BC, SELFPAY | END 2023-05-25 20:16 | disposition home or self-care (01) | LOC: LBN 20:15 | PROVIDERS: Visit Provider Physician Assistant Medical | DX: J02.9 Acute pharyngitis, unspecified (principal) | CPT/HCPCS: 87077; 87070; 87086 ==

== ENCOUNTER 2023-07-09 15:02 | Outpatient (REF) | payer BC, SELFPAY ==
[2023-07-09 15:28] LABS: Abs Immature Grans 0.03 10^3/uL (0.0-0.06); Absolute Basophil Count 0.08 10^3/uL (0.0-0.2); Absolute Eosinophil Count 0.44 10^3/uL (0.0-0.7); Absolute Lymphocyte Count 2.71 10^3/uL (1.2-3.4); Absolute Monocyte Count 0.53 10^3/uL (0.1-0.8); Absolute Neutrophil Count 6.25 10^3/uL (1.2-6.7); Basophils % 0.8; Eosinophils % 4.4; HCT 42.3 % (36.0-46.0); HGB 13.8 g/dL (11.2-15.7); Immature Grans % 0.3; MCH 27.6 pg (27.0-33.0); MCHC 32.6 % (32.0-36.0); MCV 85 fL (80-95); MPV 10.8 fL (8.0-11.0); Monocytes % 5.3; Neutrophils % 62.2; Platelet Count 373 10^3/uL (130-400); RDW 12.6 % (11.7-14.6); RDW-SD 38.7 fL; WBC 10.04 10^3/uL (4.4-10.8)
[2023-07-09 15:44] LABS: Iron 50 ug/dL (50-170); Total Iron Binding Capacity 274 ug/dL (250-450); Transferrin Sat 18 % (15-50)
[2023-07-09 15:49] LABS: ALT 39 U/L (14-59); AST 20 U/L (15-37); Albumin 3.5 g/dL (3.4-5.0); Alkaline Phosphatase 127 U/L (46-116); Anion Gap 10.5 mmol/L (3-11); BUN 14 mg/dL (7-18); Bilirubin, Total 0.5 mg/dL (0.2-1.0); CO2 25.5 mmol/L (21.0-32.0); Chloride 105 mmol/L (98-107); Ferritin 85 ng/mL (8-252); Glucose 218 mg/dL (74-106); Magnesium 1.9 mg/dL (1.8-2.4); Potassium 4.3 mmol/L (3.5-5.1); Sodium 141 mmol/L (136-145); Total Protein 6.8 g/dL (6.4-8.2)
== END 2023-07-09 15:03 | disposition home or self-care (01) ==
LOC: NCHCN 15:02
PROVIDERS: PCP Nurse Practitioner Family; Visit Provider Nurse Practitioner Family
DX: R00.2 Palpitations (principal); I10 Essential (primary) hypertension; E61.1 Iron deficiency
CPT/HCPCS: 80053; 82728; 83540; 83550; 83735; 84443; 85025

== ENCOUNTER 2023-07-12 21:35 | Emergency (ER) | payer BC, SELFPAY ==
[2023-07-12] VITALS (18 sets, daily range): BP systolic 157–171; BP diastolic 82–110; PULSE 82–100; RESP 11–24; TEMP 37; O2SAT 100
--- NOTE | 2023-07-12 21:45 | RT.EKG_ITS ---
APPROVED REPORT Exam: Resting ECG Reason for Exam: palpitations Patient Location: E HR:95 bpm ECG Measurements Heart Rate 95 AXIS TX 148 P 58 QRSd 87 QRS 62 QT 341 T 36 QTc 429 Conclusion Sinus rhythm...normal P axis, V-rate 60- 99 sinus rhtyhm, normal axis, nomra intervals, non ischemic
--- NOTE | 2023-07-12 22:00 | DI.RAD_ITS ---
Exam(s) XR CHEST 2V PA LATERAL EXAM: XR CHEST 2V PA LATERAL CLINICAL HISTORY: chest pain, palpitations TECHNIQUE: 2D digital imaging was performed of the chest. Two images were obtained. PA and lateral views were obtained. COMPARISON: CR Chest from 09/17/2018 FINDINGS: MEDIASTINUM: Normal. HEART: Normal. PULMONARY VASCULATURE: Normal. LUNGS: Clear. PLEURAL SPACE: No pleural effusion or pneumothorax. BONE:Within normal limits for the patient's age. OTHER FINDINGS:Normal. IMPRESSION: No acute pulmonary findings. DATA REPOSITORY: RADIATION DOSE DELIVERED:
--- NOTE | 2023-07-12 22:10 | ED.GENADUL_ITS ---
Discharge Plan Disposition Patient Disposition: Home Condition: Improving Discharge Details Clinical Impression: Heart palpitations, Hypertension Primary Care Provider: Crystal Green ED Provider: Kristopher Juarez Home Meds and New Rx's Prescriptions: New metoprolol succinate 25 mg tablet extended release 24 hr 25 mg PO DAILY 30 Days Qty: 30 0RF No Action mometasone [Nasonex] 50 mcg/actuation spray,non-aerosol 1 spray DENI BID albuterol sulfate [Proventil HFA] 90 mcg/actuation HFA aerosol inhaler 2 puff IH Q6H PRN multivitamin Tablet 1 tab PO DAILY diclofenac sodium 1 % gel 2 g topical QID Rx Instructions: apply to single elbow, wrist or hand; for hand includes palm/fingers/back of hand ferrous gluconate 225 mg (27 mg iron) tablet 225 mg PO DAILY albuterol sulfate 1.25 MG/3 ML solution for nebulization 1.25 mg Inhalation PRN Biofreeze (menthol) 118 ML gel 118 ml Topical PRN pregabalin [Lyrica] 150 MG capsule 150 mg PO BID Probiotic (B. coagulans) 1 EACH capsule,delayed release(DR/EC) 1 ea PO HS polyethylene glycol 3350 [Miralax] 17 gram/dose powder 17 gm PO DAILY methocarbamol [Robaxin] 500 mg tablet 500 mg PO TID tramadol 50 mg tablet 50 mg PO TID MDD 150mg PRN famotidine 20 mg tablet 20 mg PO BID cetirizine [Allergy Relief (cetirizine)] 10 mg tablet 10 mg PO DAILY PRN methylphenidate HCl 27 mg tablet extended release 24hr 54 mg PO DAILY hydroxyzine HCl 25 mg tablet 25 mg PO QHS PRN buspirone 10 mg tablet 15 mg PO TID fluoxetine 10 mg capsule 20 mg PO DAILY cholecalciferol (vitamin D3) 25 mcg (1,000 unit) capsule 50 mcg PO DAILY ondansetron 4 mg tablet,disintegrating 4 mg PO QID PRN (Reason: nausea and vomiting) Qty: 30 0RF Discharge Instructions Instructions: Heart Palpitations (ED), Hypertension (ED) Additional Instructions: Please follow-up closely with your primary care physician. Please return to the emergency department for any worsening symptoms HPI General Date/Time Provider Initiated Documentation: 07/12/23 21:43 . HPI Narrative: 45-year-old female history of gestational hypertension presents with elevated blood pressure over the past several weeks, associate with intermittent palpitations, currently being followed at a primary care physician, has a Holter monitor in place currently, no chest pain or shortness of breath, no history of coronary disease or thromboembolic disease. No exogenous estrogen use no recent travel no recent immobilization no recent surgery. Was on beta-thuan during her without any issues, had been on lisinopril for some time but discontinued Related Data Home Medications Medication Instructions Recorded Confirmed albuterol sulfate 1.25 mg/3 mL 1.25 mg inhalation PRN 04/25/16 09/06/21 solution for nebulization menthol 4 % topical gel (Biofreeze 118 ml topical PRN 04/25/16 09/06/21 (menthol)) pregabalin 150 mg capsule (Lyrica) 150 mg PO BID 07/28/16 09/06/21 Bacillus coagulans 10 billion cell 1 ea PO HS 08/29/16 09/06/21 capsule,delayed release (Probiotic (B. coagulans)) polyethylene glycol 3350 17 17 gm PO DAILY 04/30/18 09/06/21 gram/dose oral powder (Miralax) albuterol sulfate 90 mcg/actuation 2 puff inhalation Q6H PRN 05/28/18 09/06/21 aerosol inhaler (Proventil HFA) methocarbamol 500 mg tablet 500 mg PO TID 05/28/18 09/06/21 (Robaxin) mometasone 50 mcg/actuation nasal 1 spray intranasal BID 05/28/18 09/06/21 spray (Nasonex) tramadol 50 mg tablet 50 mg PO TID PRN 05/28/18 09/06/21 ondansetron 4 mg disintegrating 4 mg PO QID PRN nausea and 09/17/18 09/06/21 tablet vomiting #30 tabs cetirizine 10 mg tablet (Allergy 10 mg PO DAILY PRN 06/07/21 09/06/21 Relief (cetirizine)) famotidine 20 mg tablet 20 mg PO BID 06/07/21 09/06/21 hydroxyzine HCl 25 mg tablet 25 mg PO QHS PRN 06/07/21 09/06/21 methylphenidate HCl 27 mg 54 mg PO DAILY 06/07/21 09/06/21 tablet,extended release 24 hr buspirone 10 mg tablet 15 mg PO TID 07/12/21 08/10/21 diclofenac sodium 1 % topical gel 2 g topical QID 07/12/21 08/10/21 fluoxetine 10 mg capsule 20 mg PO DAILY 07/12/21 08/10/21 multivitamin 1 tab PO DAILY 07/12/21 08/10/21 cholecalciferol (vitamin D3) 25 50 mcg PO DAILY 08/10/21 08/10/21 mcg (1,000 unit) capsule ferrous gluconate 225 mg (27 mg 225 mg PO DAILY 08/10/21 08/10/21 iron) tablet metoprolol succinate 25 mg 25 mg PO DAILY 30 days #30 tabs 07/12/23 tablet,extended release 24 hr Previous Rx's Medication Instructions Recorded ondansetron 4 mg disintegrating 4 mg PO QID PRN nausea and 09/17/18 tablet vomiting #30 tabs metoprolol succinate 25 mg 25 mg PO DAILY 30 days #30 tabs 07/12/23 tablet,extended release 24 hr Allergies Allergy/AdvReac Type Severity Reaction Status Date / Time mold Allergy Intermediate Verified 08/10/21 09:46 General Stated Complaint: Palpitatns JALEEL: 3 Review of Systems Narrative: Review of Systems Constitutional: negative Eyes: negative ENT: negative Cardiovascular: Hypertension, palpitations Respiratory: negative Gastrointestinal: negative : negative Musculoskeletal: negative Skin: negative Neurologic: negative Psych: negative Exam Narrative Exam Narrative: Physical Examination General: alert, awake, cooperative, resting comfortably, no acute distress HEENT: normocephalic, atraumatic; PERRL, EOM intact, conjunctiva normal; no nasal discharge; moist mucous membranes, oral and pharyngeal mucosa normal, tole rating secretions Neck: supple, trachea midline; full ROM Chest: normal to inspection Respiratory: normal respiratory effort, speaking in full sentences, clear to auscultation, no wheezing, rales or rhonchi Cardiac: regular rate, regular rhythm, S1S2 intact, no murmurs rubs or gallops GI: abdomen soft, non-tender, non-distended; no palpable mass or hepatosplenomegaly Skin: no lesions, rashes or trauma appreciated Neuro: AAOx3, normal speech, moving all extremities Psych: Appropriate mood and affect Course Vital Signs Vital signs: Vital Signs Temperature 37.0 C 04/25/24 21:38 Pulse 95 H 07/12/23 21:38 Respiratory Rate 24 07/12/23 21:38 Blood Pressure 163/82 H 07/12/23 21:38 Pulse Oximetry 100 07/12/23 21:38 Temperature 37.0 C 07/12/23 21:38 Temperature Source Tympanic 07/12/23 21:38 Pulse 95 H 07/12/23 21:38 Respiratory Rate 24 07/12/23 21:38 Respiratory Effort Normal 07/12/23 22:03 Blood Pressure 163/82 H 07/12/23 21:38 Blood Pressure Position Sitting 07/12/23 21:38 Pulse Oximetry 100 07/12/23 21:38 Oxygen Delivery Method Room Air 07/12/23 21:38 Oxygen Flow Rate 0 07/12/23 21:38 Medical Decision Making 45-year-old female history of gestational hypertension presents with elevated blood pressure over the past several weeks, associate with intermittent palpitations, currently being followed at a primary care physician, has a Holter monitor in place currently, no chest pain or shortness of breath, no history of coronary disease or thromboembolic disease. No exogenous estrogen use no recent travel no recent immobilization no recent surgery. Was on beta-thuan during her without any issues, had been on lisinopril for some time but discontinued Consider symptomatic hypertension lower suspicion for ACS PE or aortic pathology. Will obtain screening labs to assess for end organ involvement. Troponin basic labs, screening x-ray, trial of beta-thuan given palpitations and hypertension as well as no negative symptoms from prior beta-thuan use. Will encourage patient to follow-up with her primary care physician pending results and imaging. 23: 16 resting comfortably no acute distress. Asymptomatic. Labs and imaging unremarkable. Will start patient on low-dose beta-thuan. Will follow-up closely with her primary care physician. Given home care instructions and strict return precautions Quality:SDOH Health Related Social Needs: No Data to Display PFSH All Active Problems (Updated 07/12/23 @ 23:16 by Kristopher Juarez MD) Hypertension (Chronic) Heart palpitations (Acute) Patellofemoral arthritis of left knee (Acute) Internal derangement of left knee (Acute ~03/02/21) Bipolar affective disorder (Acute) Lumbosacral spondylosis without myelopathy (Acute) Fever (Acute) Vitamin D deficiency (Acute) Gestational diabetes (Acute) Seasonal allergies (Acute) AMY (obstructive sleep apnea) (Chronic) Chronic low back pain (Chronic) Neck pain (Chronic) Generalized anxiety disorder (Chronic) Fatigue (Acute) Benign positional vertigo (Acute) Hand numbness (Acute) Fibromyalgia affecting multiple sites (Chronic) 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 No residual CA. Needs Pap/HPV 03/2018 with rpt Pap/HPV q3yrs. Depression (Chronic) with anxiety component Eczema (Chronic) BMI 40.0-44.9, adult (Chronic) GERD (gastroesophageal reflux disease) (Chronic) Acne rosacea (Chronic) IBS (irritable bowel syndrome) (Chronic) Asthma (Chronic) BMI 40.0-44.9, adult (Acute 06/02/16) Rosacea (Acute 04/25/16) ASCUS with positive high risk HPV (Acute 04/25/16) Migraine (Acute 04/25/16) IBS (irritable bowel syndrome) (Acute 04/25/16) History of kidney stones (Acute 04/25/16) GERD (gastroesophageal reflux disease) (Acute 04/25/16) Fibromyalgia (Acute 04/25/16) Eczema (Acute 04/25/16) Depression (Acute 04/25/16) Asthma (Acute 04/25/16) Adenocarcinoma in situ (AIS) of uterine cervix (Acute 08/29/16) 03/29/17 [facility] [place] [facility] [place]. Needs Pap/HPV of vaginal cuff 03/2018. If nl then every 3yrs. Abnormal Papanicolaou smear of cervix with positive human papilloma virus (HPV) test (Acute 07/28/16) Nl Pap/+ HPV 2016. 05/2016Colpo bx: ? atypical endocerical glands. 07/28/16 LEEP Adenocarcinoma in situ. [place] [facility] [place] [facility] neg. Pt will have R[facility] with ovarian conservation 02/2017. Medical History (Updated 07/12/23 @ 23:16 by Kristopher Juarez MD) Plantar fasciitis ADHD Surgical History (Updated 09/06/21 @ 13:17 by Elissa Quesada MD) History of robot-assisted laparoscopic hysterectomy 2018. To treat adenocarcinoma of cervix. Dilation and curettage with SAB Family History Mother Diabetes Essential hypertension Social History (Updated 11/26/18 @ 10:07 by Belen Mancilla RN) Smoking/Tobacco Use Status: Never Smoking risk assessment performed?: Yes Alcohol Intake: current Alcohol Intake frequency: holidays/special occasions only Details: rarely Drug use: Never Substance use type: does not use Household members: spouse, children and other Details: H-Mac (Dx with ASD 39yo) Daniel 6yo Autism spectrum Housing: house Number of Children: 1 current occupation: disabled secondary to fibromyalgia Current gender identity: female What is your relationship status?: Panel score (0-1 are the most socially isolated patients): 1 What type of physical activity do you participate in: additional Details: strethcing and tries to be active with son. Seatbelt use: always Do you feel safe at home: Yes Do you feel safe in your relationship?: Yes Female Reproductive History Menstrual control method: other (Hysterectomy) History History 2 Para Hx # Term Pregnancies 1 Multiple births Hx # Pregnancies Ectopic pregnancies AB induced Hx Number of Living Children AB spontaneous
[2023-07-12] MEDS: Metoprolol 25 MG TAB PO (22:15)
[2023-07-12 22:36] LABS: Abs Immature Grans 0.04 10^3/uL (0.0-0.06); Absolute Basophil Count 0.08 10^3/uL (0.0-0.2); Absolute Eosinophil Count 0.65 10^3/uL (0.0-0.7); Absolute Lymphocyte Count 3.21 10^3/uL (1.2-3.4); Absolute Monocyte Count 0.77 10^3/uL (0.1-0.8); Absolute Neutrophil Count 5.89 10^3/uL (1.2-6.7); Basophils % 0.8; Eosinophils % 6.1; HCT 41.6 % (36.0-46.0); HGB 13.1 g/dL (11.2-15.7); Immature Grans % 0.4; Lymphocytes % 30.2; MCH 27.4 pg (27.0-33.0); MCHC 31.5 % (32.0-36.0); MCV 87 fL (80-95); MPV 10.1 fL (8.0-11.0); Monocytes % 7.2; Neutrophils % 55.3; Platelet Count 334 10^3/uL (130-400); RBC 4.78 10^6/uL (3.93-5.22); RDW 12.6 % (11.7-14.6); RDW-SD 39.9 fL; WBC 10.64 10^3/uL (4.4-10.8)
[2023-07-12 22:49] LABS: PTT Activated 26.6 sec (23.6-32.8); Prothrombin Time 10.1 sec (9.1-11.1)
[2023-07-12 22:52] LABS: ALT 39 U/L (14-59); AST 18 U/L (15-37); Albumin 3.3 g/dL (3.4-5.0); Alkaline Phosphatase 151 U/L (46-116); Anion Gap 9.9 mmol/L (3-11); BUN 14 mg/dL (7-18); Bilirubin, Total 0.3 mg/dL (0.2-1.0); CO2 27.1 mmol/L (21.0-32.0); CREATININE 1.1 mg/dL (0.55-1.02); Calcium 8.6 mg/dL (8.5-10.1); Chloride 105 mmol/L (98-107); Estimated GFR 63.15 (mL/min/1.73m2); Glucose 255 mg/dL (74-106); Potassium 3.7 mmol/L (3.5-5.1); Sodium 142 mmol/L (136-145); Total Protein 6.8 g/dL (6.4-8.2); Troponin I < 50 ng/L (< or =60)
--- NOTE | 2023-07-12 23:07 | DI.VRAD_ITS ---
PROCEDURE INFORMATION: Exam: XR Chest Exam date and time: 07/12/2023 10:36 PM Age: 47 years old Clinical indication: Other: Chest pain, palpitations TECHNIQUE: Imaging protocol: Radiologic exam of the chest. Views: 2 views. COMPARISON: SC XR PORTABLE CHEST AP 09/17/2018 6:50 PM FINDINGS: Lungs: Unremarkable. No consolidation. Pleural spaces: Unremarkable. No pleural effusion. No pneumothorax. Heart/Mediastinum: Unremarkable. No cardiomegaly. Bones/joints: Unremarkable. IMPRESSION: No acute findings. Dictated and Authenticated by: Gene Sweeney MD. Ordering:PMARION Summers MD
== END 2023-07-12 23:35 | disposition home or self-care (01) ==
PROVIDERS: Emergency Provider Emergency Medicine; PCP Nurse Practitioner Family
DX: R00.2 Palpitations (principal); R07.9 Chest pain, unspecified; I10 Essential (primary) hypertension
CPT/HCPCS: 80053; 93005; 99285; 71046; 84484; 85025; 85610; 85730; 93010; 99284

== ENCOUNTER 2023-07-30 08:52 | Outpatient (CLI) | payer BC, SELFPAY ==
--- NOTE | 2023-07-30 12:42 | W.CARDEVENT ---
Date of service: 07/30/23 Time of Service: 12:42 Cardiac Event Recorder Referring Provider:: Crystal Green Indications:: Palpitations Cardiac Event Note: This is a cardiac event monitor. Patient was monitored for 12 days and 16 hours Rhythm throughout was sinus. Average heart rate was 84. Minimum was 54, maximum 141 There were a total of 8 premature ventricular contractions There were 105 atrial premature beats There was no atrial fibrillation, no high-grade AV block, no pauses greater than 3 seconds Patient's symptoms correlated with sinus rhythm
== END 2023-07-30 08:53 | disposition home or self-care (01) ==
LOC: CARDOPNVT 08:52
PROVIDERS: PCP Nurse Practitioner Family; Visit Provider Internal Medicine Cardiovascular Disease
DX: I49.3 Ventricular premature depolarization (principal); I49.1 Atrial premature depolarization

== ENCOUNTER 2023-08-07 09:56 | Outpatient (CLI) | payer BC, SELFPAY ==
[2023-08-07 09:36] LABS: Hemoglobin A1C 7.5 % (<5.7)
[2023-08-07 10:43] LABS: Vitamin D 25 Total 30.7 ng/mL (30-100)
== END 2023-08-07 09:57 | disposition home or self-care (01) ==
LOC: LBO 09:57
PROVIDERS: PCP Nurse Practitioner Family; Visit Provider Nurse Practitioner Family
DX: E55.9 Vitamin D deficiency, unspecified (principal); E66.01 Morbid (severe) obesity due to excess calories
CPT/HCPCS: 36415; 82306; 83036

== ENCOUNTER 2023-08-08 14:54 | Outpatient (REF) | payer BC, SELFPAY ==
[2023-08-08 16:19] LABS: Calculated LDL 130 mg/dL (<100); Cholesterol 201 mg/dL (<200); HDL Cholesterol 46 mg/dL (40-60); Triglyceride 125 mg/dL (<150)
== END 2023-08-08 14:55 | disposition home or self-care (01) ==
LOC: NCHCN 14:54
PROVIDERS: PCP Nurse Practitioner Family; Visit Provider Student in an Organized Health Care Education/Training Program
DX: E11.9 Type 2 diabetes mellitus without complications (principal)
CPT/HCPCS: 80061

== ENCOUNTER 2023-11-07 10:09 | Outpatient (REF) | payer BC, SELFPAY ==
[2023-11-07 15:41] LABS: Hemoglobin A1C 7.1 % (<5.7)
[2023-11-07 16:06] LABS: COMMENT (LAB VIEW ONLY) < 13.00 mg/dL
== END 2023-11-07 10:10 | disposition home or self-care (01) ==
LOC: NCHCN 10:09
PROVIDERS: Visit Provider Student in an Organized Health Care Education/Training Program
DX: E11.9 Type 2 diabetes mellitus without complications (principal)
CPT/HCPCS: 82043; 82570; 83036

== ENCOUNTER 2024-01-04 13:07 | Outpatient (CLI) | payer BC, SELFPAY ==
--- NOTE | 2024-01-04 13:10 | DI.RAD_ITS ---
Exam(s) XR CHEST 2V PA LATERAL EXAM: XR CHEST 2V PA LATERAL CLINICAL HISTORY: Cough, R05.9 TECHNIQUE: 2D digital imaging was performed of the chest. Two images were obtained. PA and lateral views were obtained. COMPARISON: CR,XR XR CHEST 2V PA LATERAL from 07/12/2023 FINDINGS: MEDIASTINUM: Normal. HEART: Normal. PULMONARY VASCULATURE: Normal. LUNGS: There is a new infiltrate in the left lower lobe. There is also a new opacity in the right up per lobe appreciated on the PA view. PLEURAL SPACE: No pleural effusion or pneumothorax. BONE:Within normal limits for the patient's age. OTHER FINDINGS:Normal. IMPRESSION: New left lower lobe infiltrate and right upper lobe opacity suspicious for pneumonia. Atelectasis ca nnot be excluded. A follow-up chest x-ray in 1 month is recommended to document complete resolution of the findings. DATA REPOSITORY: RADIATION DOSE DELIVERED:
== END 2024-01-04 13:27 ==
PROVIDERS: Visit Provider Physician Assistant Medical
DX: R91.8 Other nonspecific abnormal finding of lung field (principal)
CPT/HCPCS: 71046

== ENCOUNTER 2024-02-07 13:04 | Outpatient (REF) | payer BC, SELFPAY ==
[2024-02-07 18:54] LABS: Calculated LDL 116 mg/dL (<100); Cholesterol 190 mg/dL (<200); HDL Cholesterol 46 mg/dL (40-60); Triglyceride 143 mg/dL (<150)
[2024-02-07 19:17] LABS: Hemoglobin A1C 7.7 % (<5.7)
== END 2024-02-07 13:05 | disposition home or self-care (01) ==
LOC: NCHCN 13:04
PROVIDERS: Visit Provider Student in an Organized Health Care Education/Training Program
DX: E11.9 Type 2 diabetes mellitus without complications (principal)
CPT/HCPCS: 80061; 83036

== ENCOUNTER 2024-02-15 00:12 | Outpatient (CLI) | payer BC, SELFPAY ==
--- NOTE | 2024-02-15 09:33 | DI.RAD_ITS ---
Exam(s) XR CHEST 2V PA LATERAL EXAM: XR CHEST 2V PA LATERAL CLINICAL HISTORY: F/U PNEUMONIA,CONFIRM RESOLUTION,J18.9 TECHNIQUE: 2D digital imaging was performed of the chest. Two images were obtained. PA and lateral views were obtained. COMPARISON: CR,XR XR CHEST 2V PA LATERAL from 07/12/2023 CR XR CHEST 2V PA LATERAL from 01/04/2024 FINDINGS: MEDIASTINUM: Normal. HEART: Normal. PULMONARY VASCULATURE: Normal. LUNGS: Clear. There has been complete resolution of the right upper lobe and left lower lobe infiltr ates. PLEURAL SPACE: No pleural effusion or pneumothorax. BONE:Within normal limits for the patient's age. OTHER FINDINGS:Normal. IMPRESSION: No acute pulmonary findings. DATA REPOSITORY: RADIATION DOSE DELIVERED:
== END 2024-02-15 00:32 ==
LOC: DI 00:12
PROVIDERS: PCP Student in an Organized Health Care Education/Training Program; Visit Provider Student in an Organized Health Care Education/Training Program
DX: J18.9 Pneumonia, unspecified organism (principal)
CPT/HCPCS: 71046

== ENCOUNTER 2024-04-04 07:37 | Day surgery (SDC) | payer OTHER, SELFPAY ==
--- NOTE | 2024-04-03 15:54 | PDOC.DSDIS_ITS ---
Date of service: 04/04/24 Discharge Plan Disposition Patient Disposition: Home Condition: Good Discharge Details Reason For Visit: EGD and colonoscopy Attending Provider: Darshan Cobb Primary Care Provider: Foreign Lynn Home Meds and New Rx's Prescriptions: Continued mometasone [Nasonex] 50 mcg/actuation spray,non-aerosol 1 spray DENI BID albuterol sulfate [Proventil HFA] 90 mcg/actuation HFA aerosol inhaler 2 puff IH Q6H PRN multivitamin Tablet 1 tab PO DAILY diclofenac sodium 1 % gel 2 g topical QID Rx Instructions: apply to single elbow, wrist or hand; for hand includes palm/fingers/back of hand pregabalin 150 mg capsule 150 mg PO BID methocarbamol [Robaxin] 500 mg tablet 500 mg PO TID tramadol 50 mg tablet 50 mg PO TID MDD 150mg PRN cetirizine [Allergy Relief (cetirizine)] 10 mg tablet 10 mg PO DAILY PRN methylphenidate HCl 27 mg tablet extended release 24hr 54 mg PO DAILY hydroxyzine HCl 25 mg tablet 25 mg PO QHS PRN cholecalciferol (vitamin D3) 25 mcg (1,000 unit) capsule 50 mcg PO DAILY azelaic acid 15 % gel 1 applic topical BID buspirone 30 mg tablet 30 mg PO BID lisinopril 5 mg tablet 5 mg PO DAILY metformin 500 mg tablet extended release 24 hr 1,000 mg PO DAILY metoprolol succinate 25 mg tablet extended release 24 hr 25 mg PO DAILY omeprazole 40 mg capsule,delayed release(DR/EC) 40 mg PO DAILY famotidine 20 mg tablet 20 mg PO DAILY ondansetron 4 mg tablet,disintegrating 4 mg PO QID PRN (Reason: nausea and vomiting) Qty: 30 0RF Discontinued polyethylene glycol 3350 17 gram/dose powder 238 g PO ONCE Qty: 238 0RF Rx Instructions: take per colonoscopy instructions bisacodyl [Dulcolax (bisacodyl)] 5 mg tablet,delayed release (DR/EC) 5 mg PO ONCE Qty: 4 0RF Rx Instructions: take per colonoscopy instructions Discharge Instructions Instructions: Colon polyps Additional Instructions: Diana, it was nice seeing you today, and I hope you feel well after the procedure. Everything went very smoothly. With regards to your upper endoscopy, I do not see anything structurally that would correlate with the symptoms that you have been experiencing. Everything from the upper part of your esophagus down through the beginning of your small intestine appears norm al. I did do multiple biopsies in various locations here to see if that would help explain anything. Your colonoscopy prep was excellent, and I had great visualization all along the length of the large intestine. I did find, and removed, a single polyp today. It will take about a week or so for the report from the polyp, as well as from the biopsies to come back, but once I have them I will be in touch. If we do not find anything with that information, that I think a barium swallow test would probably be the next best step to see how the esophagus functions during the course of your swallowing activity. 1. If tolerated, consume a soft, low fiber diet for 1-2 days. [address] Do not drive, drink alcohol, operate machinery, make critical decisions, or do activities that require coordination or balance for 24 hours. 3. Because air was put into your colon during the procedure, expelling air from your rectum (passing gas or farting) is normal. 4. You may not have a bowel movement for 1-3 days because of the colonoscopy prep. This is normal. 5. You may experience a sore throat for 24 to 48 hours. You may use throat lozenges or gargle with warm salt water to relieve the discomfort. 6. Because air was put into your stomach during the procedure, you may experience some belching. 7. Go directly to the emergency room if you notice any of the following: Develop chills (warm to touch), or if you have a thermometer and your temperature is above 101 Difficulty breathing or difficultly swallowing Persistent vomiting Severe abdominal pain, other than gas cramps Severe chest pain Black, tarry stools Any bleeding ? exceeding one tablespoon 8. Call your physician if the site where your intravenous was started becomes red, swollen, painful, and warm to touch. 9. Your physician has reviewed your pre-procedure medications. Please continue to take those medications as previously ordered. You will be given specific information/education regarding any changes to your medications before leaving. Stand Alone Forms: Anesthesia Discharge InstMaddy Salguero (DSU) Activity:: Activity as Tolerated Diet:: As Tolerated Discharge Orders Discharge Orders: Discharge Order (Routine); Ordered 04/03/24 Ordered By: Darshan Cobb DS: Diagnosis Discharge Diagnosis (1) Screening for malignant neoplasm of colon: Status: Inactive Asessment and Plan: Follow-up on biopsy and polypectomy results
--- NOTE | 2024-04-03 15:56 | W.PM.ENDDOP ---
Date of service: 04/04/24 Time of Service: 09:57 Endoscopy Report DATE OF PROCEDURE: 04/04/24 PRE-OP DIAGNOSIS: screening EGD and colonoscopy POST-OP DIAGNOSIS: other (Normal EGD; rectal polyp) PROCEDURE: EGD with biopsies and colonoscopy with polypectomy SURGEON: Darshan Cobb ANESTHESIA TYPE: General:No Airway ESTIMATED BLOOD LOSS: 5 PATHOLOGY: other (Random biopsies of duodenum, gastric antrum and body, esophagus; rectal polyp) COMPLICATIONS: None DISPOSITION: same day INDICATIONS: Diana is a 48 eyar old woman with longstanding GERD syptoms depsite PPI therapy who needs a screening EGD and colonoscopy PREP: Miralax/Dulcolax PROCEDURE START TIME: 09:16 PROCEDURE END TIME: 09:41 COLONOSCOPY RETRACTION TIME: 7 FINDINGS: Normal-appearing EGD with GE junction measuring 36 cm from the incisors; 0.25 cm slightly pedunculated rectal polyp PROCEDURE DESCRIPTION: After the initiation of anesthesia, and with the assistance of a bite block, I advanced a standard gastroscope through the mouth past the hypopharynx and into the esophagus.? Under the direct vision of the scope, I advanced down the esophagus towards the stomach.? The upper, mid, and lower esophagus were all normal-appearing. I saw no evidence of any mucosal abnormality such as an esophageal inlet patch. There is no evidence of any strictures or diverticula. Narrowband imaging was used to assist with the analysis of the GE junction. The Z-line was regular and measured about 36 cm from the incisors. It did not appear consistent with Arreola's esophagus. Advanced down into the stomach proper and insufflated into the rugae were obliterated. I performed retroflexion. I saw no signs of hiatal hernia. I was able to advance down around the incisura angularis through the pylorus and into the duodenum. I got as far as about the second portion of the duodenum. All this mucosa appeared normal. I did do some nondirected cold forceps biopsies of the duodenum to rule out celiac disease as a source of her symptoms. I then brought the camera back up into the stomach, and performed nondirected biopsies of the gastric antrum and body to rule out Helicobacter pylori. Finally, the stomach was emptied, and the camera was brought back out along the length of the esophagus 1 last time. Cold forceps were biopsies were performed throughout the length of the esophagus to see if there is any evidence of microscopic esophagitis. Next, we rolled Diana into the left lateral decubitus position. Great care was taken to make sure that she was padded and supported appropriately as she has recent episode of right hip bursitis. I began by performing an external anorectal exam.? Perineum and skin were normal, as was the anal verge.? There was no evidence of external hemorrhoids.? Next, I performed a digital rectal exam.? I did not appreciate any abnormal findings.? Next, I advanced a colonoscope into the rectal vault.? I performed retroflexion.? This appeared normal.? Using insufflation, I then advanced the colonoscope beyond the rectal folds and into the sigmoid colon before advancing towards the cecum.? In the upper portion of the rectal vault was a 0.25 cm slightly pedunculated polyp. This was removed with cold forceps polypectomy with minimal bleeding. I continued advancing. The quality of the prep was outstanding.? The scope was noted to be in the cecum by identification of the ileocecal valve and appendiceal orifice.? I then began withdrawing the colonoscope using repeated irrigation as necessary for full evaluation of the colonic mucosa. ?Once the scope was withdrawn to the level of the rectum, great care was taken to examine portions of the rectal folds.? Aside from the previously mentioned polyp, the remainder of the colon was normal. Finally, the scope was withdrawn and the patient was brought to the same-day surgery recovery unit as the anesthetic wore off. ?The findings and instructions were shared with the patient prior to discharge. The [place] bowel prep score from right to left was 3, 3, 3
--- NOTE | 2024-04-04 07:07 | W.ANESPRE ---
General Info Date of Service Date Performed: 04/04/24 Height: 5 ft 6 in Weight: 128.026 kg Body Mass Index (BMI): 45.5 Surgical Procedure: Operation Date: 04/04/24 08:50 Proposed Procedure Side Surgeon p Colonoscopy/Gastroscopy Darshan Cobb MD Meds Allergies and Home Medications Allergies Allergy/AdvReac Type Severity Reaction Status Date / Time mold Allergy Intermediate Unknown Verified 04/04/24 07:50 Home Medication ?Medication ?Instructions ?Recorded albuterol sulfate 90 mcg/actuation 2 puff inhalation Q6H PRN 05/28/18 aerosol inhaler (Proventil HFA) methocarbamol 500 mg tablet 500 mg PO TID 05/28/18 (Robaxin) mometasone 50 mcg/actuation nasal 1 spray intranasal BID 05/28/18 spray (Nasonex) tramadol 50 mg tablet 50 mg PO TID PRN 05/28/18 ondansetron 4 mg disintegrating 4 mg PO QID PRN nausea and 09/17/18 tablet vomiting #30 tabs cetirizine 10 mg tablet (Allergy 10 mg PO DAILY PRN 06/07/21 Relief (cetirizine)) hydroxyzine HCl 25 mg tablet 25 mg PO QHS PRN 06/07/21 methylphenidate HCl 27 mg 54 mg PO DAILY 06/07/21 tablet,extended release 24 hr diclofenac sodium 1 % topical gel 2 g topical QID 07/12/21 multivitamin 1 tab PO DAILY 07/12/21 cholecalciferol (vitamin D3) 25 50 mcg PO DAILY 08/10/21 mcg (1,000 unit) capsule azelaic acid 15 % topical gel 1 applic topical BID 03/05/24 buspirone 30 mg tablet 30 mg PO BID 03/05/24 lisinopril 5 mg tablet 5 mg PO DAILY 03/05/24 metformin 500 mg tablet,extended 1,000 mg PO DAILY 03/05/24 release 24 hr metoprolol succinate 25 mg 25 mg PO DAILY 03/05/24 tablet,extended release 24 hr omeprazole 40 mg capsule,delayed 40 mg PO DAILY 03/05/24 release famotidine 20 mg tablet 20 mg PO DAILY 03/18/24 pregabalin 150 mg capsule 150 mg PO BID 03/18/24 Current Visit Medications: Current Medications Generic Name Dose Route Start Last Admin Trade Name Freq PRN Reason Stop Dose Admin Ringer's Solution 1,000 mls @ 0 mls/hr 04/04/24 06:00 IV 04/04/24 23:59 INFUSION PHILL Ringer's Solution 1,000 mls @ 80 mls/hr 04/04/24 07:45 IV 05/04/24 07:44 INFUSION PHILL IV Miscellaneous Supplies 1 each 04/04/24 06:00 Iv Access IV 04/04/24 23:59 DIRECTED PHILL Ondansetron HCl 4 mg 04/03/24 15:57 Ondansetron 4 Mg/2 Ml Vial IVP 05/03/24 15:56 Q4H PRN PRN Nausea / Vomiting Sodium Chloride 0 ml 04/04/24 06:00 Normal Saline Flush 10 Ml Syr IV 04/04/24 23:59 PRN PRN Sodium Chloride 0 ml 04/04/24 06:00 Normal Saline 10 Ml Vial IJ 04/04/24 23:59 DIRECTED PRN Sterile Water 0 ml 04/04/24 06:00 Water,Injection,Sterile 10 Ml Vial IJ 04/04/24 23:59 DIRECTED PRN PFSH Active Problems Active Problems: Problem Status Onset Code Symptoms of gastroesophageal reflux Acute R19.8 Patellofemoral arthritis of left knee Acute M17.12 Internal derangement of left knee Acute ~03/02/21 M23.92 Bipolar affective disorder Acute F31.9 Lumbosacral spondylosis without myelopathy Acute M47.817 Fever Acute R50.9 Vitamin D deficiency Acute E55.9 Gestational diabetes Acute O24.419 Seasonal allergies Acute J30.2 AMY (obstructive sleep apnea) Chronic G47.33 Chronic low back pain Chronic M54.5, G89.29 Neck pain Chronic M54.2 Generalized anxiety disorder Chronic F41.1 Fatigue Acute R53.83 Benign positional vertigo Acute H81.10 Hand numbness Acute R20.0 Fibromyalgia affecting multiple sites Chronic BMI 40.0-44.9, adult Acute 06/02/16 Z68.41 Rosacea Acute 04/25/16 L71.9 ASCUS with positive high risk HPV Acute 04/25/16 Migraine Acute 04/25/16 G43.909 IBS (irritable bowel syndrome) Acute 04/25/16 K58.9 History of kidney stones Acute 04/25/16 Z87.442 GERD (gastroesophageal reflux disease) Acute 04/25/16 K21.9 Fibromyalgia Acute 04/25/16 M79.7 Eczema Acute 04/25/16 L30.9 Depression Acute 04/25/16 F32.9 Asthma Acute 04/25/16 J45.909 Adenocarcinoma in situ (AIS) of uterine cervix Acute 08/29/16 D06.9 Abnormal Papanicolaou smear of cervix with positive human papilloma virus (HPV) test Acute 07/28/16 R87.89 Asthma Chronic GERD (gastroesophageal reflux disease) Chronic BMI 40.0-44.9, adult Chronic Depression Chronic Medical History Medical History Bursitis of right hip Acne rosacea IBS (irritable bowel syndrome) Cervical high risk HPV (human papillomavirus) test positive 03/2014 Nl Pap. + HPV. 04/2016 Nl Pap. + HPV 06/02/16 Colpo bx: Atypical endocervical glands. 07/28/16 LEEP ACIS 09/26/16 [facility] [place] [facility] [place]. Neg path. 03/2017 [facility]. No residual CA. Needs Pap/HPV 03/2018 with rpt Pap/HPV q3yrs. Eczema Migraine Adenocarcinoma of cervix 03/2017 [facility]. No residual CA. Needs Pap/HPV 03/2018 with rpt Pap/HPV q3yrs. Plantar fasciitis ADHD Medical History Comments:: pt. states when she had her epidural for csection her BP dropped substanitally Surgical History Surgical History Hysterectomy, Laproscopic (03/29/17) Robotic assisted vaginal hysterectomy with ovarian conservation. [facility] [place] Dx of adenocarcinoma in situ of cervix. History of robot-assisted laparoscopic hysterectomy 2018. To treat adenocarcinoma of cervix. Dilation and curettage with SAB Tobacco Smoking/Tobacco Use Status: Never Passive smoking exposure: No Alcohol Alcohol Intake: current Alcohol intake frequency: holidays/special occasions only Details: rarely Substance Use Substance use: Never Substance use type: does not use Prental History History 2 Para Hx # Term Pregnancies 1 Multiple births Hx # Pregnancies Ectopic pregnancies AB induced Hx Number of Living Children AB spontaneous Vital Signs and Lab Results Lab Results Blood Type / Crossmatch: No Data to Display Complete Blood Count: No Data to Display Complete Metabolic Panel: No Data to Display Liver Function Panel: No Data to Display Coagulation Panel: No Data to Display Cardiac Panel: No Data to Display Arterial Blood Gas: No Data to Display Venous Blood Gas: No Data to Display Pancreas Panel: No Data to Display Thyroid Panel: No Data to Display Infectious Disease: No Data to Display Blood Cultures: No Data to Display Toxicology Panel: No Data to Display Panel: No Data to Display Imaging and Studies Imaging and Studies Study information below may be from another EMR and interpreted by another provider. Please see original notes in EMR for more complete details. EKG Summary: EKG PATIENT NAME: Diana Barrera UNIT #: [id number] ORDERING PROVIDER: Kristopher Juarez M.D. PRIMARY CARE PROVIDER: Crystal Green DATE/TIME OF SERVICE: 07/12/232148 : 1975 PERFORMING LOCATION: ER APPROVED REPORT Exam: Resting ECG Reason for Exam: palpitations Patient Location: E HR:95 bpm ECG Measurements Heart Rate 95 AXIS MS 148 P 58 QRSd 87 QRS 62 QT 341 T36 QTc 429 Conclusion Sinus rhythm...normal P axis, V-rate 60- 99 sinus rhtyhm, normal axis, nomra intervals, non ischemic <Electronically signed by Kristopher Juarez M.D. in [place]> E-Sign Date: 07/12/23 E-Sign Time: 2307 ADDENDUM APPROVED REPORT Exam: Resting ECG Reason for Exam: palpitations Patient Location: E HR:95 bpm ECG Measurements Heart Rate 95 AXIS MS 148 P 58 QRSd 87 QRS 62 QT 341 T36 QTc 429 Conclusion Sinus rhythm...normal P axis, V-rate 60- 99 sinus rhtyhm, normal axis, nomra intervals, non ischemic I have reviewed and I agree with the emergency room physician's ECG interpretation. Electronically signed by: <Electronically signed by Erica Dye M.D. in [place]> 07/13/23 0810 Cosigned by: Anesthesia Assessment and Plan Anesthesia History Personal History: Other Family History: No Family History of Anesthesia Complications Exercise Tolerance Exercise Tolerance: Metabolic Equivalents>4 Pertinent Negatives Pertinent Negatives: No Symptoms of GERD Cardiac & Pulmonary Exam Cardiac Exam: Normal S1/S2 Heart Sounds Pulmonary Exam: Clear Bilateral Breath Sounds Implantable Cardiac Device Does patient have a Pacemaker or an ICD?: No Airway Exam Known Difficult Airway: No Mallampati Class: 3 Mouth Opening: Narrow (< 3cm) Thyromental Distance: Greater than 3 cm Neck Range of Motion: Full ROM Neck Circumference: Normal Teeth Condition: Normal Dentition ASA Classification ASA Score: ASA 3 Emergency Case?: No NPO Status NPO Status: NPO Clears >2 hours, Solids >8 hours Status Status: Not Relevant due to Medical History Anesthesia Plan Resuscitation Status: Full Code Anesthesia Technique: General Anesthesia Airway Planned: Natural Airway Monitors Used: Standard Monitors
[2024-04-04 07:56] VITALS: BP 133/89; PULSE 93; RESP 18; TEMP 36.5; O2SAT 95
[2024-04-04] MEDS: Lactated Ringers 1,000 ML 80 ML IV (08:30)
--- NOTE | 2024-04-04 09:17 | BOWEL_PTH ---
PATIENT: Diana Barrera LOC: [facility] U#:[id number] AGE/SX: 48/F ROOM: RE04/04/[address]: Darshan Cobb MD : 1975 BED: DIS: 04/04/2024 SPEC #: [id number] RECD: 04/04/24 12:52 STATUS: HAROLDO RE #: [id number] MAGNOLIA: 04/04/24 09:[address]: Darshan Cobb DEPT: Surgical Specimen RECD BY: Racheal Robles ENTERED: 04/04/24 12:54 SP TYPE: Bowel OTHR DR: Foreign Lynn Tissues: 1 - BIOPSY BOWEL 2 - STOMACH BIOPSY 3 - STOMACH BIOPSY 4 - ESOPHAGUS BIOPSY 5 - BIOPSY BOWEL Procedures: GROSS AND MICRO LEVEL 4 Comments: [id number]
[2024-04-04 09:45] VITALS: BP 93/64; PULSE 94; RESP 18; TEMP 36.3; O2SAT 98
[2024-04-04 09:49] VITALS: BMI 45.5
--- NOTE | 2024-04-04 10:09 | W.ANESPOSTOP ---
Postoperative Evaluation Date, Time and Location Date Performed: 04/04/24 Time Performed: 10:09 Patient Location: Day Surgery Unit Vital Signs Most Recent Imported Vital Signs: Most Recent Vital Signs Temp Pulse Resp BP Pulse Ox 36.3 C L 94 H 18 93/64 L 98 04/04/24 09:45 04/04/24 09:45 04/04/24 09:45 04/04/24 09:45 04/04/24 09:45 Pain Score Most Recent Pain Score: Most Recent Pain Score Pain Level 2 04/04/24 09:45 Assessment Mental Status: Awake (Alert & Oriented to Patient Baseline) Airway and Respiratory Function: Patent airway with normal (patient baseline) respiratory exam Cardiovascular Function: Hemodynamically Stable Hydration Status: Adequately Hydrated Nausea & Vomiting: No Nausea or Vomiting Pain: Pain is Moderate or Severe Postoperative Pain Management: Pain being addressed with medication (15 of toradol ordered) Peripheral Nerve Block: Patient did not receive a nerve block
[2024-04-04] MEDS: Ketorolac 15 MG/ML VIAL IVP (10:25)
[2024-04-04] MEDS: Normal Saline Flush 10 ML SYR IV (10:25)
[2024-04-04 10:30] VITALS: BP 113/77; PULSE 65; RESP 17; TEMP 36.5; O2SAT 98
== END 2024-04-04 10:49 | disposition home or self-care (01) ==
LOC: SUR 07:37
PROVIDERS: PCP Student in an Organized Health Care Education/Training Program; Visit Provider Surgery
PROC: (CPT 45380; principal; 2024-04-04 08:45)
DX: Z12.11 Encounter for screening for malignant neoplasm of colon (principal); K62.1 Rectal polyp; K21.9 Gastro-esophageal reflux disease without esophagitis
CPT/HCPCS: 45380; 43239; 88305; J1885; J2405; J2704

== ENCOUNTER 2024-06-27 00:14 | Outpatient (CLI) | payer OTHER, SELFPAY ==
--- NOTE | 2024-06-27 10:58 | DI.RAD_ITS ---
Exam(s) XR LUMBAR SPINE COMPLETE EXAM: XR LUMBAR SPINE COMPLETE CLINICAL HISTORY: LOW BACK PAIN, M54.50, ACUTE ON CHRONIC LBP, EVAL FOR DDD. TECHNIQUE: 2D digital imaging was performed. Five views. COMPARISON: No exams were available for comparison FINDINGS: BONES: No fracture or destructive lesion. Vertebral body heights are maintained. No facet hypertro phy identified . DISKS: Intervertebral disc spaces are maintained. Minimal endplate osteophytes. ALIGNMENT: Lumbar spinal alignment is within normal limits. SOFT TISSUE: Nor large quantity of stool on the right side of the colon. IMPRESSION: Minimal degenerative changes. DATA REPOSITORY: RADIATION DOSE DELIVERED:
--- NOTE | 2024-06-27 10:58 | DI.RAD_ITS ---
Exam(s) XR HIP RT COMPLETE AP PELVIS EXAM: XR HIP RT COMPLETE AP PELVIS CLINICAL HISTORY: RT HIP JOINT PAIN, M25.551, EVAL FOR DJD. TECHNIQUE: 2D digital imaging was performed. Two views COMPARISON: CR LUMBAR SPINE COMPLETE from 08/07/2017 FINDINGS: BONES: No acute fracture is present. No bony destructive lesion is seen. JOINTS: No dislocation present. The hip joint spaces are maintained. Minimal acetabular spurring. There are mild degenerative changes of the right SI joint SOFT TISSUE: Normal. IMPRESSION: Minimal degenerative changes. DATA REPOSITORY: RADIATION DOSE DELIVERED:
== END 2024-06-27 00:34 ==
LOC: DI 00:14
PROVIDERS: PCP Student in an Organized Health Care Education/Training Program; Visit Provider Family Medicine
DX: M54.50 Low back pain, unspecified (principal); M25.551 Pain in right hip
CPT/HCPCS: 72110; 73502

== ENCOUNTER 2024-07-09 18:50 | Outpatient (REF) | payer OTHER, SELFPAY ==
[2024-07-09 15:25] LABS: ESR 27 mm/hr (0-20)
[2024-07-09 15:57] LABS: Hemoglobin A1C 7.4 % (<5.7)
[2024-07-09 16:02] LABS: ALT 35 U/L (14-59); AST 22 U/L (15-37); Albumin 3.5 g/dL (3.4-5.0); Alkaline Phosphatase 115 U/L (46-116); BUN 17 mg/dL (7-18); Bilirubin, Total 0.2 mg/dL (0.2-1.0); C-Reactive Protein 2.31 mg/dL (<or=0.5); CREATININE 0.8 mg/dL (0.55-1.02); Calcium 9.5 mg/dL (8.5-10.1); Chloride 105 mmol/L (98-107); Estimated GFR 91.97 (mL/min/1.73m2); Glucose 196 mg/dL (74-106); Potassium 4.8 mmol/L (3.5-5.1); Sodium 141 mmol/L (136-145)
[2024-07-09 16:47] LABS: Folate 4.5 ng/mL (8.6-20.0); Vitamin B12 582 pg/mL (193-986)
[2024-07-10 12:30] LABS: RNP Ab, IgG <6.0 CU (<20.0); Ro60 Ab, IgG <7.0 CU (<20.0); SS-A/Ro, IgG <2.3 CU (<20.0); SS-B (La) Ab, IgG <3.3 CU (<20.0); Sm (Smith) Ab, IgG <8.0 CU (<20.0); dsDNA Ab, IgG <22.0 IU/mL (<27.0)
[2024-07-11 10:22] LABS: Scl 70 Antibodies, IgG <0.2 U
[2024-07-11 13:55] LABS: ANA Interpretation Negative (Negative)
== END 2024-07-09 18:51 | disposition home or self-care (01) ==
LOC: NCHCN 18:50
PROVIDERS: PCP Student in an Organized Health Care Education/Training Program; Visit Provider Family Medicine
DX: E11.69 Type 2 diabetes mellitus with other specified complication (principal)
CPT/HCPCS: 80053; 85652; 82607; 82746; 83036; 86038; 86140; 86225; 86235

== ENCOUNTER 2024-07-22 12:20 | Outpatient (REF) | payer OTHER, SELFPAY | END 2024-07-22 12:21 | disposition home or self-care (01) | LOC: LBN 12:20 | PROVIDERS: PCP Student in an Organized Health Care Education/Training Program; Visit Provider Obstetrics & Gynecology | DX: R32 Unspecified urinary incontinence (principal); Z12.4 Encounter for screening for malignant neoplasm of cervix; N76.0 Acute vaginitis | CPT/HCPCS: 88142; 87086; 87624 ==

== ENCOUNTER 2024-09-03 02:26 | Outpatient (CLI) | payer OTHER, SELFPAY ==
--- NOTE | 2024-09-03 12:15 | DI.MAMMO_ITS ---
Exam(s) MAMMO SCREENING EXAM: MAMMO SCREENING CLINICAL HISTORY: screening TECHNIQUE: Bilateral full field digital CC and MLO mammographic images were obtained with 3D tomosynthesis and utilizing computer aided detection (CAD). COMPARISON: This is a baseline examination. FINDINGS: Masses/Architectural Distortion: No suspicious masses or areas of architectural distortion are present. There is a small 3 mm nodule in the central right breast on the craniocaudad view. This should be further evaluated with a spot compression view. Microcalcifications: No suspicious pleomorphic-type are seen. Skin Thickening/Nipple Retraction: None. IMPRESSION: 1. Small nodule in the central right breast. 2. Spot compression views requested for further evaluation. Ultrasound may be indicated at that time. BI-RADS Category 0 - Incomplete: Need additional imaging evaluation Breast Density - Category A - The breast are almost entirely fatty. Breast density Category C or D implies that the patient has dense breast tissue. Dense breast tissue can make it harder to find cancer on a mammogram. Dense breast tissue is also associated with an increased risk of breast cancer. This information about the result of the mammogram report was provided to the patient to raise their awareness. Use this report when you speak with the patient about their risks for breast cancer, which includes their family history. At that time, you may recommend additional screening tests (Ultrasound or MRI) as these tests may add significant information. A negative radiographic report should not delay biopsy if a dominant or clinically suspicious mass is present. Up to ten percent of cancers are not identified on mammography. A negative report may reinforce clinical impression. Adenosis and dense breasts may obscure an underlying neoplasm. False positive reports average 6 to 10%. Patient will receive a letter notifying them of these results.
== END 2024-09-03 02:46 ==
LOC: DI 02:27
PROVIDERS: PCP Family Medicine; Visit Provider Obstetrics & Gynecology
DX: Z12.31 Encounter for screening mammogram for malignant neoplasm of breast (principal); R92.313 Mammographic fatty tissue density, bilateral breasts
CPT/HCPCS: 77063; 77067

== ENCOUNTER 2024-09-15 01:20 | Outpatient (CLI) | payer OTHER, SELFPAY ==
--- NOTE | 2024-09-15 | DI.MAMMO_ITS ---
Exam(s) MAMMO SCREEN CALL BACK UNI US BREAST RT COMPLETE EXAM: MAMMO SCREEN CALL BACK UNI CLINICAL HISTORY: 3 mm nodule in central rt breast on CC view. TECHNIQUE: Craniocaudal spot compression digital Mammography views of the right breast followed by Tomosynthesis and right breast ultrasound. COMPARISON: [facility] MAMMO SCREENING from 09/03/2024 FINDINGS: Mammography/Tomosynthesis: Masses/Architectural Distortion: Tiny circumscribed nodule in the central breast tissue in the upper half of the breast has the appearance of an intramammary lymph node. Microcalcifictions: No suspicious pleomorphic-type are seen. Skin Thickening/Nipple Retraction: None. Right breast US: Echotexture: Normal appearance of the glandular tissue. Shadowing: No suspicious foci. Cyst: None. Solid lesions: None seen. Ductal dilation: None. IMPRESSION: 1. No evidence of malignancy is noted. 2. Unless there is more urgent need, follow-up screening mammography is recommended, as per [employer] guidelines. 3. The findings were discussed with the patient on the date of the examination. BI-RADS Category 1 - Negative Breast Density - Category A - The breast are almost entirely fatty. Breast density Category C or D implies that the patient has dense breast tissue. Dense breast tissue can make it harder to find cancer on a mammogram. Dense breast tissue is also associated with an increased risk of breast cancer. This information about the result of the mammogram report was provided to the patient to raise their awareness. Use this report when you speak with the patient about their risks for breast cancer, which includes their family history. At that time, you may recommend additional screening tests (Ultrasound or MRI) as these tests may add significant information. A negative radiographic report should not delay biopsy if a dominant or clinically suspicious mass is present. Up to ten percent of cancers are not identified on mammography. A negative report may reinforce clinical impression. Adenosis and dense breasts may obscure an underlying neoplasm. False positive reports average 6 to 10%. Patient will receive a letter notifying them of these results.
== END 2024-09-15 01:40 ==
LOC: DI 01:20
PROVIDERS: PCP Family Medicine; Visit Provider Obstetrics & Gynecology
DX: Z12.31 Encounter for screening mammogram for malignant neoplasm of breast (principal); R92.313 Mammographic fatty tissue density, bilateral breasts
CPT/HCPCS: 76642; 77063; 77067